=== PATIENT | male | born 1930 | race Caucasian/White ===

== ENCOUNTER 2018-11-17 14:40 | Inpatient (IN) | payer BC ==
[~2018-11-17] VITALS: Ht 162.6 cm; Wt 53.2 kg
[2018-11-17 20:18] VITALS: Ht 162.6 cm; Wt 53.2 kg
[2018-11-17 20:19] VITALS: BP 127/64; PULSE 74; RESP 18
[2018-11-17] MEDS ORDERED: DOCUSATE SODIUM 100 MG CAP PO PRN (21:30)
[2018-11-17] MEDS ORDERED: ONDANSETRON 4 MG INJ IV PRN (21:30)
[2018-11-17] MEDS ORDERED: ACETAMINOPHEN 325 MG TAB PO PRN (21:30)
[2018-11-17] MEDS: SOD CHLORIDE 0.9% 1,000 ML IV SCH (22:01)
[2018-11-17] MEDS: PIPER-TAZO 3.375 GM IV (PMX) 100 ML IVPB SCH (22:01)
[2018-11-18 02:30] VITALS: BP 111/63; PULSE 70; RESP 18
[2018-11-18] MEDS: PIPER-TAZO 3.375 GM IV (PMX) 100 ML IVPB SCH ×3 (05:43→22:00)
[2018-11-18] MEDS: PANTOPRAZOLE (EC) 40 MG TAB PO SCH (05:43)
[2018-11-18 07:20] VITALS: BP 101/60; PULSE 69; RESP 15
[2018-11-18 14:08] VITALS: BP 129/61; PULSE 70; RESP 15
--- NOTE | 2018-11-18 15:13 | HP ---
FREYA MONDRAGON 11/18/18 1513: Date/Time of Note Date/Time of Note DATE: 11/18/18 TIME: 15:13 Assessment/Plan VTE Prophylaxis Risk score ([place] [facility] [place] risk: 3 SCD applied (from Ns): Yes Pharmacological prophylaxis: LMWH Lines/Catheters IV Catheter Type (from [facility]): Saline Lock Assessment/Plan Hospital Course 1 SIRS 2/2 to urinary tract infection 2 hyponatremia 3 history of pancreatitis with ERCP. 2016 4 history of cholecystectomy in 2016 5. weakness secondary to urinary tract infection 6. History of hepatic and renal cyst 7. History of prostate disease however patient PSA is unknown and the ultrasound of the prostate is unavailable 8. Abdomen laparotomy due to unknown disease, 2016 was done in [place] 9. Abdominal ventral hernia 10. Normocytic normochromic anemia Assessment/Plan -GI prophylaxis with Protonix -PSA level and ultrasound of prostate -DVT prophylaxis with Lovenox - IV antibiotics Zosyn -FAll precautions Result Diagram: 11/18/18 0500 11/18/18 0500 Results 24hrs Laboratory Tests Test 11/18/18 04:45 11/18/18 05:00 Urine Color YELLOW Urine Clarity CLEAR Urine pH 7.0 Urine Specific Kegley 1.008 Urine Ketones NEGATIVE Urine Nitrite NEGATIVE Urine Bilirubin NEGATIVE Urine Urobilinogen NEGATIVE Urine Leukocyte Esterase 2+ H Urine Microscopic RBC 3 Urine Microscopic WBC 24 H Urine Bacteria FEW A Urine Hemoglobin NEGATIVE Urine Glucose NEGATIVE Urine Total Protein NEGATIVE White Blood Count 11.4 H Red Blood Count 3.88 L Hemoglobin 12.1 L Hematocrit 34.4 L Mean Corpuscular Volume 88.7 Mean Corpuscular Hemoglobin 31.2 Mean Corpuscular Hemoglobin Concent 35.2 Red Cell Distribution Width 12.2 Platelet Count 255 Mean Platelet Volume 8.0 Immature Granulocytes % 0.400 Neutrophils % 81.5 H Lymphocytes % 7.1 L Monocytes % 8.7 Eosinophils % 2.1 Basophils % 0.2 Nucleated Red Blood Cells % 0.0 Immature Granulocytes # 0.050 H Neutrophils # 9.3 H Lymphocytes # 0.8 Monocytes # 1.0 H Eosinophils # 0.2 Basophils # 0.0 Nucleated Red Blood Cells # 0.0 Sodium Level 126 L Potassium Level 3.8 Chloride Level 94 L Carbon Dioxide Level 24 Anion Gap 8 Blood Urea Nitrogen 7 Creatinine 0.51 L Est Glomerular Filtrat Rate mL/min Glucose Level 96 Calcium Level 9.0 HPI/ROS Admit Date/Time Admit Date/Time Nov 17, 2018 at 19:33 Hx of Present Illness This 88 years old male who who lived in [place] all his life was transferred today from [facility] with a diagnosis of hyponatremia, generalized weakness and urinary tract infection. X-ray showed possible pneumonia as well. The emergency room [facility] started him on antibiotics and IV fluids. Patient also has past medical history of pancreatitis, pneumonia and prostate disease. Patient laboratory w as reviewed CMP sodium 125 potassium 4.9 chloride 92 calcium 8.6 ALT and AST normal BUN 11 creatinine 0.70. CBC is 15.6 RBC 4.35 hemoglobin 13 hematocrit 42 platelets 314 fluids a and B are negative urinalysis show leukocyte esterase positive WBC is more than 50 and many bacteria. Chest x-ray is positive for upper lobe opacities that might represent COPD. Patient was transferred today to [facility] due to insurance purposes. surgical history ERCP 2017, cholecystectomy, laparotomy 2016 ROS weakness ENT: no complaints Respiratory: no complaints Cardiovascular: no complaints Gastrointestinal: no complaints PMH/Family/Social Past Medical History Medications Current Medications Acetaminophen (Tylenol Tab) 650 mg Q4H PRN PO MILD PAIN(1-3)OR ELEVATED TEMP; Start 11/17/18 at 21:30 Ondansetron HCl (Zofran Inj) 4 mg Q6H PRN IV NAUSEA AND/OR VOMITING; Start 11/17/18 at 21:30 Pantoprazole (Protonix Tab) 40 mg DAILY@06 PO Last administered on 11/18/18at 05:43; Admin Dose 40 MG; Start 11/18/18 at 06:00 Docusate Sodium (Colace) 100 mg BID PRN PO CONSTIPATION; Start 11/17/18 at 21:30 Piperacillin Sod/ Tazobactam Sod 100 ml @ 200 mls/hr Q8 IVPB Last administered on 11/18/18at 13:54; Admin Dose 200 MLS/HR; Start 11/17/18 at 22:00 Sodium Chloride 1,000 ml @ 50 mls/hr Q20H IV Last administered on 11/17/18at 22:01; Admin Dose 50 MLS/HR; Start 11/17/18 at 21:30 Coded Allergies: No Known Allergy (Unverified , 11/17/18) Past Surgical History Past Surgical Hx: cholecystectomy (2017) Social History Alcohol Use: none Smoking Status: Never smoker Drug Use: none Exam/Review of Systems Vital Signs Vitals Vital Signs Date Temp Pulse Resp B/P (MAP) Pulse Ox O2 O2 Flow FiO2 Time Delivery Rate 11/18/18 98.0 70 15 129/61 100 Room Air 14:08 (83) Intake and Output 11/17/18 11/17/18 11/18/18 1515:00 23:00 07:00 IntakeIntake Total 300 ml 750 ml OutputOutput Total 150 ml 1000 ml BalanceBalance 150 ml -250 ml Exam Constitutional: alert, oriented Eyes: nl conjunctiva ENMT: nl external ears & nose Neck: supple Respiratory: diminished breath sounds Cardiovascular: regular rate and rhythm Gastrointestinal: soft, surgical scars, other (ventral hernia) SARAN ALFRED MD 11/18/18 1741: Assessment/Plan Assessment/Plan Assessment/Plan RENAL U./A/BLADDER us flomax iv abx see n and examined Hyponatremia > wup Result Diagram: 11/18/18 0500 11/18/18 0500 PMH/Family/Social Past Medical History Coded Allergies: No Known Allergy (Unverified , 11/17/18) FREYA MONDRAGON Nov 18, 2018 15:13 SARAN ALFRED MD Nov 18, 2018 17:41
[2018-11-18] MEDS: SOD CHLORIDE 0.9% 1,000 ML IV SCH (17:30)
[2018-11-18] MEDS: ENOXAPARIN 40 MG/0.4 ML SYG SC SCH (17:41)
[2018-11-18 20:00] VITALS: BP 127/61; PULSE 69; RESP 18
[2018-11-18] MEDS: TAMSULOSIN (SR) 0.4 MG CAP PO SCH (20:25)
[2018-11-19 01:37] VITALS: BP 117/66; PULSE 78; RESP 20
[2018-11-19] MEDS: PANTOPRAZOLE (EC) 40 MG TAB PO SCH (06:34)
[2018-11-19] MEDS: PIPER-TAZO 3.375 GM IV (PMX) 100 ML IVPB SCH ×3 (06:34→21:32)
[2018-11-19 08:12] VITALS: BP 117/67; PULSE 77; RESP 18
[2018-11-19] MEDS: ENOXAPARIN 40 MG/0.4 ML SYG SC SCH (08:28)
--- NOTE | 2018-11-19 09:54 | PN ---
FREYA STYLES 11/19/18 0954: Date/Time of Note Date/Time of Note DATE: 11/19/18 TIME: 09:52 Assessment/Plan VTE Prophylaxis Risk score (from Ns)>0 risk: 3 SCD applied (from Nsg): Yes Pharmacological prophylaxis: LMWH Lines/Catheters IV [facility]ter Type (from [facility]): Peripheral IV Assessment/Plan Hospital Course 1 SIRS 2/2 to urinary tract infection 2 hyponatremia, worse, sodium studies are done 3 history of pancreatitis with ERCP. 2016 4 history of cholecystectomy in 2016 5. weakness secondary to urinary tract infection 6. History of hepatic and renal cyst 7. History of prostate disease however patient PSA is unknown and the ultrasound of the prostate is unavailable 8. Abdomen laparotomy due to unknown disease, 2016 was done in [place] 9. Abdominal ventral hernia 10. Normocytic normochromic anemia Assessment/Plan -GI prophylaxis with Protonix fluid restrictions -PSA level 4.1, slightly elevated, almost normal -ultrasound of prostate normal -DVT prophylaxis with Lovenox - IV antibiotics Zosyn -FAll precautions Result Diagram: 11/19/18 0454 11/19/18 0454 Results 24hrs Laboratory Tests Test 11/18/18 17:15 11/18/18 18:02 11/19/18 04:54 Urine Osmolality 526 Urine Random Sodium 183 H Sodium Level 124 L 123 L White Blood Count 8.1 # Red Blood Count 4.05 L Hemoglobin 12.5 L Hematocrit 35.3 L Mean Corpuscular Volume 87.2 Mean Corpuscular Hemoglobin 30.9 Mean Corpuscular Hemoglobin Concent 35.4 Red Cell Distribution Width 12.2 Platelet Count 267 Mean Platelet Volume 8.2 Immature Granulocytes % 0.500 H Neutrophils % 76.1 Lymphocytes % 8.7 L Monocytes % 10.0 Eosinophils % 4.6 Basophils % 0.1 Nucleated Red Blood Cells % 0.0 Immature Granulocytes # 0.040 H Neutrophils # 6.1 Lymphocytes # 0.7 L Monocytes # 0.8 Eosinophils # 0.4 Basophils # 0.0 Nucleated Red Blood Cells # 0.0 Potassium Level 4.0 Chloride Level 90 L Carbon Dioxide Level 24 Anion Gap 9 Blood Urea Nitrogen 7 Creatinine 0.50 L Est Glomerular Filtrat Rate mL/min Glucose Level 90 Calcium Level 9.2 Prostate Specific Antigen 4.1 H Subjective 24 Hr Interval Summary Constitutional: no complaints, improved Exam/Review of Systems Exam Vitals Vital Signs Date Temp Pulse Resp B/P (MAP) Pulse Ox O2 O2 Flow FiO2 Time Delivery Rate 11/19/18 97.8 77 18 117/67 99 Room Air 08:12 (84) Intake and Output 11/18/18 11/18/18 11/19/18 1515:00 23:00 07:00 IntakeIntake Total 520 ml 990 ml OutputOutput Total 600 ml 350 ml BalanceBalance -80 ml 990 ml -350 ml Constitutional: alert Respiratory: clear to auscultation Cardiovascular: regular rate and rhythm Gastrointestinal: soft Results Result Diagram: 11/19/18 0454 11/19/18 0454 Results 24hrs Laboratory Tests Test 11/18/18 17:15 11/18/18 18:02 11/19/18 04:54 Urine Osmolality 526 Urine Random Sodium 183 H Sodium Level 124 L 123 L White Blood Count 8.1 # Red Blood Count 4.05 L Hemoglobin 12.5 L Hematocrit 35.3 L Mean Corpuscular Volume 87.2 Mean Corpuscular Hemoglobin 30.9 Mean Corpuscular Hemoglobin Concent 35.4 Red Cell Distribution Width 12.2 Platelet Count 267 Mean Platelet Volume 8.2 Immature Granulocytes % 0.500 H Neutrophils % 76.1 Lymphocytes % 8.7 L Monocytes % 10.0 Eosinophils % 4.6 Basophils % 0.1 Nucleated Red Blood Cells % 0.0 Immature Granulocytes # 0.040 H Neutrophils # 6.1 Lymphocytes # 0.7 L Monocytes # 0.8 Eosinophils # 0.4 Basophils # 0.0 Nucleated Red Blood Cells # 0.0 Potassium Level 4.0 Chloride Level 90 L Carbon Dioxide Level 24 Anion Gap 9 Blood Urea Nitrogen 7 Creatinine 0.50 L Est Glomerular Filtrat Rate mL/min Glucose Level 90 Calcium Level 9.2 Prostate Specific Antigen 4.1 H Medications Medication Current Medications Acetaminophen (Tylenol Tab) 650 mg Q4H PRN PO MILD PAIN(1-3)OR ELEVATED TEMP; Start 11/17/18 at 21:30 Ondansetron HCl (Zofran Inj) 4 mg Q6H PRN IV NAUSEA AND/OR VOMITING; Start 11/17/18 at 21:30 Pantoprazole (Protonix Tab) 40 mg DAILY@06 PO Last administered on 11/19/18at 06:34; Admin Dose 40 MG; Start 11/18/18 at 06:00 Docusate Sodium (Colace) 100 mg BID PRN PO CONSTIPATION; Start 11/17/18 at 21:30 Piperacillin Sod/ Tazobactam Sod 100 ml @ 200 mls/hr Q8 IVPB Last administered on 11/19/18at 06:34; Admin Dose 200 MLS/HR; Start 11/17/18 at 22:00 Enoxaparin Sodium (Lovenox) 40 mg DAILY SC Last administered on 11/19/18at 08:28; Admin Dose 40 MG; Start 11/18/18 at 16:00 Tamsulosin HCl (Flomax) 0.4 mg HS PO Last administered on 11/18/18at 20:25; Admin Dose 0.4 MG; Start 11/18/18 at 21:00 SARAN ALFRED MD 11/19/18 1428: Assessment/Plan Assessment/Plan Assessment/Plan URINE STUDIES CONSISTENT WITH [facility] [place] Result Diagram: 11/19/18 0454 11/19/18 0454 FREYA MONDRAGON Nov 19, 2018 09:54 SARAN ALFRED MD Nov 19, 2018 14:28
[2018-11-19] MEDS ORDERED: TOLVAPTAN 15 MG TABLET PO ONE (10:30)
[2018-11-19 15:22] VITALS: BP 105/59; PULSE 69; RESP 18
[2018-11-19 19:22] VITALS: BP 114/56; PULSE 75; RESP 18
[2018-11-19] MEDS: TAMSULOSIN (SR) 0.4 MG CAP PO SCH (20:25)
[2018-11-20] MEDS: PIPER-TAZO 3.375 GM IV (PMX) 100 ML IVPB SCH ×2 (05:53→14:00)
[2018-11-20] MEDS: PANTOPRAZOLE (EC) 40 MG TAB PO SCH (05:53)
[2018-11-20 08:25] VITALS: BP 99/54; PULSE 78; RESP 18
[2018-11-20] MEDS: ENOXAPARIN 40 MG/0.4 ML SYG SC SCH (09:59)
[2018-11-20 13:53] VITALS: BP 111/62; PULSE 76; RESP 19
--- NOTE | 2018-11-20 14:07 | PDOCDIS ---
Discharge Instructions DIAGNOSIS Discharge Diagnosis UTI Hyponatremia CONDITION [id number] Patient Condition: [id number] Fair HOME CARE INSTRUCTIONS: [id number] Diet Instructions: [id number] Modified Fat ACTIVITY: [id number] Activity Restrictions: [id number] No Restrictions Slowly Increase Activity Rest between Activity FOLLOW UP/APPOINTMENTS Follow-up Plan f/u PCP in1 week for BMP ( na check) FLuid restriction 1.2l Return to ER if has abdominal pain/ vommting/fevers/chills SARAN ALFRED MD Nov 20, 2018 14:07
[2018-11-20] MEDS ORDERED: TAMS-14 PO (14:08)
[2018-11-20] MEDS ORDERED: CIPR500T4 PO (14:08)
--- NOTE | 2018-11-21 00:45 | DS ---
DATE OF ADMISSION: 11/17/2018 DATE OF DISCHARGE: 11/20/2018 HISTORY OF PRESENT ILLNESS AND HOSPITAL COURSE: This is an 88-year-old male with a past medical hist ory of pancreatitis, pneumonia, and prostate disease. The patient was admitted to [facility] secondary to some generalized weakness. The patient was found to have UTI. The patient had histor y of pneumonia before; however, chest x-ray shows possibility of pneumonia but patient was not in any short of breath or any cough. On admission date, vital signs were stable. Blood sodium was 125, po tassium 4.9, AST and ALT within normal limit, BUN of 11, and creatinine 0.70. The patient was transf erred to [facility] due to insurance purposes. The patient was to continue with IV Zosyn. The patient was also started on Flomax for BPH. The patient also had a pelvic ultrasound that showed urinary bladder not visualized, peripheral calcification within the prostate, was does to be enlarge d in size; however, evaluation was limited due to calcification. The patient has a PSA level, which was 4.1. 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 Urine osmolality was 526, urine sodium 183, and pH was normal. He was g iven low dose Samsca. After that, the urine sodium normalized to 133. The patient was feeling much better and ambulating with the help of the physical therapy. Urine culture studies have been negativ e. Currently, the patient is feeling much better and stable to be discharged home. DISCHARGE DIAGNOSES: 1. Urinary tract infection. 2. 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 3. Possible benign prostatic hypertrophy. 4. Sores secondary to urinary tract infection. 5. History of pancreatitis in 2017. 6. History of cholecystectomy. 7. History of hepatic and renal cysts. 8. History of abdominal laparotomy. 9. History of ventral hernia. DISCHARGE CONDITION: Stable. DISCHARGE DIET: Regular diet; however, the patient should be on fluid restriction. The patient will follow up with PCP in about 1 week for her BMP check. Family was instructed to bring the patient to the hospital again if patient has some weakness, nausea, vomiting, fevers, or chills. Dictated By: SARAN ALMANZA/SARTHAK Conf#: [id number] [facility]#: [id number]
== END 2018-11-20 14:50 | disposition home or self-care (01) | DRG 690 ==
LOC: MS1 19:33
PROVIDERS: ADMIT Internal Medicine; ATTEND Internal Medicine
DX: N39.0 Urinary tract infection, site not specified (principal); E22.2 Syndrome of inappropriate secretion of antidiuretic hormone; D64.9 Anemia, unspecified; K43.9 Ventral hernia without obstruction or gangrene; N40.0 Benign prostatic hyperplasia without lower urinary tract symptoms; R53.1 Weakness; Z90.49 Acquired absence of other specified parts of digestive tract
CPT/HCPCS: 76856; 80048; 81001; 83935; 84153; 84154; 84295; 84300; 85025; 87086; 97116; 97161; 97530; J1650; J2543; J7030

== ENCOUNTER 2019-01-03 15:36 | Inpatient (IN) | payer BC ==
[~2019-01-03] VITALS: Ht 162.6 cm; Wt 51.2 kg
[~2019-01-03 15:36] MED LIST: CIPR500T4 PO; TAMS-14 PO
[2019-01-03] MEDS ORDERED: SOD CHLORIDE 0.9% 500 ML IV STA (16:36)
--- NOTE | 2019-01-03 16:45 | ERD ---
ER Documentation Chief Complaint Chief Complaint bib ambulnz 520 from [facility], pt is being admitted for pneumonia / sob HPI 88-year-old man transferred here from [facility] emergency department after being diagnosed with pneumonia. Patient was treated in the ER with IV fluids ceftriaxone and azithromycin IV. Patient had complaints of coughing and intermittent wheezing x3 weeks. Patient has no complaints of chest pain or shortness of breath in our emergency department, denies headache or blurry vision, no vomiting or diarrhea. HPI supplemented by speaking to his family member who was at the bedside, reviewing [facility] ED records, and speaking to accepting physician ROS All systems reviewed and are negative except as per history of present illness. Medications Home Meds Active Scripts Ciprofloxacin Hcl* (Ciprofloxacin Hcl*) 500 Mg Tablet, 500 MG PO BID for 7 Days, #14 TAB Prov:SARAN ALFRED MD 11/20/18 Tamsulosin Hcl* (Flomax*) 0.4 Mg Cap.er.24h, 0.4 MG PO HS for 30 Days, CAP Prov:SARAN ALFRED MD 11/20/18 Allergies Allergies: Coded Allergies: No Known Allergy (Unverified , 11/17/18) PMhx/Soc Pancreatitis, BPH History of Surgery: Yes (TURP (2008); Abdominal surgery( N/A wich one)) Anesthesia Reaction: No Hx Neurological Disorder: No Hx Respiratory Disorders: No Hx Cardiac Disorders: No Hx Psychiatric Problems: No Hx Miscellaneous Medical Probl: Yes ([employer] SL[employer], GENERALIZED WEAKNESS .) Hx Alcohol Use: No Hx Substance Use: No Hx Tobacco Use: No Smoking Status: Never smoker Physical Exam Vitals Vital Signs Date Temp Pulse Resp B/P (MAP) Pulse Ox O2 O2 Flow FiO2 Time Delivery Rate 01/03/19 Nasal 2.0 15:50 Cannula 01/03/19 97.5 70 19 118/74 100 15:50 (89) Physical Exam GENERAL: Well-developed, well-nourished, well-hydrated, in no apparent distress, looks nontoxic in appearance HEENT: Moist mucous membranes, pink conjunctiva, no cervical spine tenderness or step-off deformities, no goiter, no jaundice or icterus, extraocular movements intact without pain. No submandibular induration, and no pharyngeal erythema NEURO: Alert and oriented 3, cranial nerves II through XII intact bilaterally, pupils equal round reactive to light, no focal deficits or facial asymmetry, sensation intact distally Strength 5/5 in upper and lower extremities bilat erally CARDIAC: Regular rate and rhythm, no murmurs rubs or gallops LUNGS: Clear bilaterally no wheezing crackles or stridor ABDOMEN: Soft nontender, no guarding, no rigidity, no rebound, no psoas sign no obturator sign. Normoactive bowel sounds SKIN: Warm and dry to touch, no abrasions, contusions, or hematomas, no lacerations, no ecchymosis, no target lesions, and without ulcers EXTREMITIES: No clubbing cyanosis or edema, calves are bilaterally symmetrical, no Homans sign, no popliteal cord sign. Distal pulses equal and bilateral PSYCH: Normal affect without agitation or irritability Results 24 hrs Current Medications Medications Dose Sig/Christin Start Time Status Last (Trade) Ordered Route PRN Stop Time Admin Dose Reason Admin Sodium 500 ml @ Q1H STAT 01/03/19 Chloride 500 mls/hr IV 16:36 01/03/19 17:35 Procedures/MDM IV line was established patient was placed on cardiac exercise physiologist rhythm strip revealed a sinus rhythm at about 80 bpm with upright P and T waves. Patient was afebrile Patient's recent lab work reveals hyponatremia at 120 with a normal blood sugar, his CBC was within normal limits. I ordered repeat blood work and administered 500 cc normal saline IV. Patient's recent x-ray revealed diffuse reticulonodular opacities, further imaging may be indicated although I will defer this to admitting physician. Patient accepted to telemetry setting. Departure Diagnosis: Primary Impression: Pneumonia Pneumonia type: due to unspecified organism Laterality: bilateral Lung location: lower lobe of lung Qualified Codes: J18.1 - Lobar pneumonia, unspecified organism Additional Impressions: Acute hyponatremia Reticulonodular infiltrate present on imaging of chest Condition: KATIE Hastings MD Jan 03, 2019 16:45
--- NOTE | 2019-01-03 17:30 | QN ---
Documentation Comment pt seen and exmained h and p dictated SARAN ALFRED MD Jan 03, 2019 17:29
[2019-01-03] MEDS ORDERED: CEFTRIAXONE 1 GM/50 ML (PMX) 50 ML IVPB SCH (18:00)
[2019-01-03] MEDS ORDERED: NACL 0.9% 3 ML SYG IV SCH (18:00)
[2019-01-03] MEDS ORDERED: ACETAMINOPHEN 325 MG TAB PO PRN (18:00)
[2019-01-03] MEDS ORDERED: ONDANSETRON 4 MG INJ IV PRN (18:00)
[2019-01-03] MEDS ORDERED: DOCUSATE SODIUM 100 MG CAP PO PRN (18:00)
[2019-01-03] MEDS: ENOXAPARIN 40 MG/0.4 ML SYG SC SCH (18:38)
[2019-01-03] MEDS: AZITHROMYCIN 500MG/NS (PMX) 250 ML IV SCH (19:36)
[2019-01-03] MEDS ORDERED: AZITHROMYCIN 250 MG in SOD CHLORIDE 0.9% 250 ML IVPB SCH (20:00)
[2019-01-03] MEDS: ALBUTEROL/IPRATROPIUM (NEB) 3 ML AMP HHN SCH (22:09)
--- NOTE | 2019-01-03 22:10 | HP ---
DATE OF ADMISSION: 01/03/2019 REASON FOR ADMISSION: Transferred from [facility] secondary to weakness, fevers, cough and pneumonia. HISTORY OF PRESENT ILLNESS: This is an 88-year-old male with the past medical history of some pancreatic surgery in [place] many years ago, history of cholecystectomy, history of pancreatic and renal cysts who was recently admitted in 10/2018 secondary to hyponatremia, urinary tract infection and possible pneumonia. At that time, patient was treated with antibiotics and was discharged home in stable condition. The patient was also treated with Samsca and the sodium had improved on discharge. According to the family, the patient had been doing fine until two weeks ago, he was starting having worsening cough and wheezing. The patient was also getting progressively short of breath which made him come to the Emergency Department at [facility]. The patient was not having any fevers and chills. According to the family, patient has lost 14 pounds. When patient came to the Emergency Department, patient denied any night sweats. The patient's temperature was 98.5, pulse 94, respirations 20, blood pressure 135/70. The patient had labs that showed a BNP of 261, procalcitonin less than 0.10, sodium 120, BUN of 9, creatinine 0.55. LFTs within normal limit except alkaline phosphatase was 149. Albumin 3.6, lactate was 2, troponin less than 0.01, had white count of 5.7 and hemoglobin 12.9. The patient had a chest x-ray that showed diffuse reticular nodular opacities likely increased in both lungs from the prior radiograph. This can be further assessed with CT. The patient was treated with IV antibiotics with Rocephin, azithromycin and fluids, and then was transferred due to insurance reasons. According to the daughter, the patient has been having some cough and wheezing for past two weeks. PAST MEDICAL HISTORY: 1. History of hyponatremia. 2. History of urinary tract infection. 3. Possible benign prostatic hypertrophy. 4. History of pancreatitis in 2017. 5. History of cholecystectomy. 6. History of hepatic and renal cyst. 7. History of abdominal laparotomy in [place]. 8. History of ventral hernia. ALLERGIES: NONE. PAST SURGICAL HISTORY: Pancreatic surgery, questionable ERCP. SOCIAL HISTORY: No history of smoking, alcohol or drug use. He has a strong family history of support at home. MEDICATIONS TAKING AT HOME: None. REVIEW OF SYSTEMS: The patient complained of cough, shortness of breath and wheezing for the past 2 to 3 weeks. Some weight loss. Denies any nausea, vomiting, diarrhea. Denied any headache or any blurry vision. He does not have more than usual intake of water. Denies any nocturia, dysuria, any burning sensation. PHYSICAL EXAMINATION: VITAL SIGNS: Currently, blood pressure 118/74, temperature 97.5, pulse 70, respirations 19. Gen: Awake,alert and oriented neck: supple Lungs: diffuse scattered rhonchi cvs: Regular rate and rthym Abdomen:soft, non tender Ext : no edema neuro non focal LABORATORY DATA: Labs from the [facility]: Sodium was 120. White count was within normal limit. BUN and creatinine within normal limit. DIAGNOSTIC DATA: Chest x-ray shows diffuse reticular nodular opacities. EKG was within normal limit. ASSESSMENT AND PLAN: This is an 88-year-old male with: 1. Recurrent episode of pneumonia. Chest x-ray there has showed reticular nodular opacities. We will ruled out some atypical pneumonia/rule out questionable malignancy. 2. Shortness of breath, cough, is likely secondary to bronchospasm. 3. History of some pancreatic surgery, status post ERCP. 4. History of hepatic and renal cyst. 5. Acute hyponatremia, questionable ____. 6. History of ventral hernia. PLAN: At this period of time, the patient will be admitted to telemetry. The patient will be on broad spectrum antibiotics, nebs. We will also get a CT of the chest. We will call pulmonary consultation. So for sodium, we will check a repeat sodium again and possibly patient will need Samsca. We will check urine ____. Rest of the treatment will depend on the patient's hospitalization course. Dictated By: SARAN ALMANZA/SARTHAK Conf#: [id number] DID#: [id number] MTDD
[2019-01-04] VITALS (13 sets, daily range): BP systolic 104–135; BP diastolic 53–74; PULSE 79–107; RESP 18–20; Ht 162.6 cm; Wt 51.2 kg
[2019-01-04] MEDS: ALBUTEROL/IPRATROPIUM (NEB) 3 ML AMP HHN SCH ×5 (02:13→20:48)
[2019-01-04] MEDS: PANTOPRAZOLE (EC) 40 MG TAB PO SCH (05:34)
[2019-01-04] MEDS: ENOXAPARIN 40 MG/0.4 ML SYG SC SCH (08:56)
--- NOTE | 2019-01-04 11:05 | CONS ---
Assessment/Plan Assessment/Plan Assessment/Plan (Daily) Assessment and recommendations; 1. Patient admitted with bilateral community-acquired pneumonia with multilobar involvement. Clinically improving. 2. History of BPH. 3. Prior history of laparotomy with cholecystectomy. 4. History of pancreatitis in the past as well. Discontinue Rocephin, start cefepime 1 g every 12 hours. Continue other supportive care. Continue Zithromax. Obtain follow-up chest x-ray in 48 hours. Consultation Date/Type/Reason Admit Date/Time Jan 03, 2019 at 16:08 Date of Consultation: Jan 04, 2019 Type of Consult Pulmonary Patient is a pleasant 88-year-old gentleman who has been admitted because of cough for the last 2 weeks shortness of breath. Upon evaluation a CT scan of chest was done which showed bilateral pneumonia. Patient is feeling better since admission. Denies any fever, chills, wheezing, complains of cough without any significant sputum production. Also denies any nausea vomiting. By the time I saw the patient, he appeared comfortable. Past medical history; 1. History of BPH. 2. No history of any cardiopulmonary illnesses. 3. History of pink otitis in the past. 4. History of cholecystectomy. 5. History of laparotomy. Medications; reviewed. Allergies; none. Social history; patient never smoked, no stable alcohol or drug abuse. Family history; noncontributory. 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 Review of systems; denies any headache, seizures, dysphagia, chest pain, angina, complains of cough and chest congestion. Complains of very scant sputum production. Denies any hemoptysis. Denies any fever or chills. Any abdominal pain, nausea vomiting. Complains of occasional difficulty with urination. Denies any GI symptoms. Any weight loss. Has good appetite. General exam; elderly male, awake alert, currently in no distress. Date/Time of Note DATE: 01/04/19 TIME: 11:02 Past Medical History Home Meds Active Scripts Tamsulosin Hcl* (Flomax*) 0.4 Mg Cap.er.24h, 0.4 MG PO HS for 30 Days, CAP Prov:SARAN ALFRED MD 11/20/18 Discontinued Scripts Ciprofloxacin Hcl* (Ciprofloxacin Hcl*) 500 Mg Tablet, 500 MG PO BID for 7 Days, #14 TAB Prov:SARAN ALFRED MD 11/20/18 Medications Current Medications IV Flush (NS 3 ml) 3 ml PER PROTOCOL IV ; Start 01/03/19 at 18:00 Ondansetron HCl (Zofran Inj) 4 mg Q6H PRN IV NAUSEA/VOMITING; Start 01/03/19 at 18:00 Acetaminophen (Tylenol Tab) 650 mg Q6H PRN PO .PAIN 1-3 OR TEMP; Start 01/03/19 at 18:00 Docusate Sodium (Colace) 100 mg Q12H PRN PO .CONSTIPATION; Start 01/03/19 at 18:00 Pantoprazole (Protonix Tab) 40 mg DAILY@06 PO Last administered on 01/04/19at 05:34; Admin Dose 40 MG; Start 01/04/19 at 06:00 Enoxaparin Sodium (Lovenox) 40 mg DAILY SC Last administered on 01/04/19at 08:56; Admin Dose 40 MG; Start 01/03/19 at 18:00 Ceftriaxone Sodium 50 ml @ 100 mls/hr Q24H IVPB Last administered on 01/03/19at 18:38; Admin Dose 100 MLS/HR; Start 01/03/19 at 18:00 Albuterol/ Ipratropium (Duoneb) 3 ml Q4H RESP THERAPY HHN Last administered on 01/04/19at 05:32; Admin Dose 3 ML; Start 01/03/19 at 21:00 Azithromycin 250 ml @ 250 mls/hr Q24H IV Last administered on 01/03/19at 19:36; Admin Dose 250 MLS/HR; Start 01/03/19 at 18:30 Allergies: Coded Allergies: No Known Allergy (Unverified , 01/03/19) Past Surgical History Past Surgical Hx: cholecystectomy Social History Smoking Status: Never smoker Exam/Review of Systems Exam Vitals Vital Signs Date Temp Pulse Resp B/P (MAP) Pulse Ox O2 O2 Flow FiO2 Time Delivery Rate 01/04/19 82 08:00 01/04/19 98.6 18 125/59 99 Nasal 07:13 (81) Cannula 01/04/19 3.0 05:32 Intake and Output 01/03/19 01/03/19 01/04/19 1515:00 23:00 07:00 IntakeIntake Total 50 ml 200 ml OutputOutput Total 450 ml BalanceBalance 50 ml -250 ml Exam H EENT exam; supple neck, no JVD. No lymphadenopathy. Midline trachea. No thyromegaly. Patient does have carious teeth. Pupils are small bilaterally. No neck masses. Chest exam; diminished breath sounds bilaterally. Scattered crackles. S1-S2 audible, no murmurs. Regular rhythm. Abdomen exam; soft, nontender. No organomegaly. Bowel sounds audible. Extremity exam; no peripheral edema. Patient does have patchy ecchymosis. [employer] exam; no focal deficit. Results Result Diagram: 01/03/19 1707 01/04/19 0701 Results 24hrs Laboratory Tests Test 01/03/19 17:07 01/04/19 04:20 01/04/19 07:01 White Blood Count 5.8 Red Blood Count 4.17 L Hemoglobin 12.6 L Hematocrit 36.8 L Mean Corpuscular Volume 88.2 Mean Corpuscular Hemoglobin 30.2 Mean Corpuscular Hemoglobin Concent 34.2 Red Cell Distribution Width 12.8 Platelet Count 293 Mean Platelet Volume 7.7 Immature Granulocytes % 0.500 H Neutrophils % 69.6 Lymphocytes % 12.0 L Monocytes % 15.1 H Eosinophils % 2.6 Basophils % 0.2 Nucleated Red Blood Cells % 0.0 Immature Granulocytes # 0.030 Neutrophils # 4.1 Lymphocytes # 0.7 L Monocytes # 0.9 Eosinophils # 0.2 Basophils # 0.0 Nucleated Red Blood Cells # 0.0 Sodium Level 125 L 124 L Potassium Level 4.8 4.3 Chloride Level 89 L 91 L Carbon Dioxide Level 28 24 Anion Gap 8 9 Blood Urea Nitrogen 8 8 Creatinine 0.56 L 0.49 L Est Glomerular Filtrat Rate mL/min Glucose Level 101 93 Calcium Level 8.9 8.7 Total Bilirubin 0.8 Direct Bilirubin 0.00 Indirect Bilirubin 0.8 Aspartate Amino Transf (AST/SGOT) 19 Alanine Aminotransferase (ALT/SGPT) 19 Alkaline Phosphatase 128 H Troponin I < 0.012 Total Protein 7.2 Albumin 3.7 Globulin 3.50 H Albumin/Globulin Ratio 1.05 Lipase 53 Urine Random Sodium 180 H Phosphorus Level 3.6 Magnesium Level 1.8 Medications Medication Current Medications IV Flush (NS 3 ml) 3 ml PER PROTOCOL IV ; Start 01/03/19 at 18:00 Ondansetron HCl (Zofran Inj) 4 mg Q6H PRN IV NAUSEA/VOMITING; Start 01/03/19 at 18:00 Acetaminophen (Tylenol Tab) 650 mg Q6H PRN PO .PAIN 1-3 OR TEMP; Start 01/03/19 at 18:00 Docusate Sodium (Colace) 100 mg Q12H PRN PO .CONSTIPATION; Start 01/03/19 at 18:00 Pantoprazole (Protonix Tab) 40 mg DAILY@06 PO Last administered on 01/04/19at 05:34; Admin Dose 40 MG; Start 01/04/19 at 06:00 Enoxaparin Sodium (Lovenox) 40 mg DAILY SC Last administered on 01/04/19at 08:56; Admin Dose 40 MG; Start 01/03/19 at 18:00 Ceftriaxone Sodium 50 ml @ 100 mls/hr Q24H IVPB Last administered on 01/03/19at 18:38; Admin Dose 100 MLS/HR; Start 01/03/19 at 18:00 Albuterol/ Ipratropium (Duoneb) 3 ml Q4H RESP THERAPY HHN Last administered on 01/04/19at 05:32; Admin Dose 3 ML; Start 01/03/19 at 21:00 Azithromycin 250 ml @ 250 mls/hr Q24H IV Last administered on 01/03/19 19:36; Admin Dose 250 MLS/HR; Start 01/03/19 at 18:30 ANISH ATKINSON Jan 04, 2019 11:05
[2019-01-04] MEDS ORDERED: TOLVAPTAN 15 MG TABLET PO ONE (14:00)
[2019-01-04] MEDS: CEFEPIME 1GM/50 ML (PMX) 50 ML IVPB SCH ×2 (14:13→21:47)
--- NOTE | 2019-01-04 15:34 | PN ---
Date/Time of Note Date/Time of Note DATE: 01/04/19 TIME: 15:30 Assessment/Plan VTE Prophylaxis Risk score (from Ns)>0 risk: 11 [place] [facility] [place] contraindicated: low risk/ambulating Pharmacological prophylaxis: NA/contraindicated Pharm contraindication: low risk/ambulating Lines/Catheters IV Catheter Type (from [facility]): [place] Urinary Cath still in place: No Assessment/Plan Assessment/Plan 88-year-old male with: 1. Recurrent episode of pneumonia. Chest x-ray there has showed reticular nodular opacities. CT of the chest with the bronchiolitis/bronchopneumonia 2. Shortness of breath, cough, is likely secondary to bronchospasm. 3. History of some pancreatic surgery, status post ERCP. 4. History of hepatic and renal cyst. 5. 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 History of ventral hernia. plan -Continue with cefepime/azithromycin -robitussin as needed cough -We will give Samsca today and recheck sodium -GI/DVT prophylaxis -spoke to the family at bedside Result Diagram: 01/03/19 1707 01/04/19 1214 Results 24hrs Laboratory Tests Test 01/03/19 17:07 01/04/19 04:20 01/04/19 07:01 01/04/19 12:14 White Blood Count 5.8 Red Blood Count 4.17 L Hemoglobin 12.6 L Hematocrit 36.8 L Mean Corpuscular Volume 88.2 Mean Corpuscular 30.2 Hemoglobin Mean Corpuscular 34.2 Hemoglobin Concent Red Cell Distribution 12.8 Width Platelet Count 293 Mean Platelet Volume 7.7 Immature Granulocytes % 0.500 H Neutrophils % 69.6 Lymphocytes % 12.0 L Monocytes % 15.1 H Eosinophils % 2.6 Basophils % 0.2 Nucleated Red Blood 0.0 Cells % Immature Granulocytes # 0.030 Neutrophils # 4.1 Lymphocytes # 0.7 L Monocytes # 0.9 Eosinophils # 0.2 Basophils # 0.0 Nucleated Red Blood 0.0 Cells # Sodium Level 125 L 124 L 123 L Potassium Level 4.8 4.3 Chloride Level 89 L 91 L Carbon Dioxide Level 28 24 Anion Gap 8 9 Blood Urea Nitrogen 8 8 Creatinine 0.56 L 0.49 L Est Glomerular Filtrat Rate mL/min Glucose Level 101 93 Calcium Level 8.9 8.7 Total Bilirubin 0.8 Direct Bilirubin 0.00 Indirect Bilirubin 0.8 Aspartate Amino 19 20 Transf (AST/SGOT) Alanine 19 14 Aminotransferase (ALT/SG PT) Alkaline Phosphatase 128 H Troponin I < 0.012 Total Protein 7.2 Albumin 3.7 Globulin 3.50 H Albumin/Globulin Ratio 1.05 Lipase 53 Urine Osmolality 468 Urine Random Sodium 180 H Phosphorus Level 3.6 Magnesium Level 1.8 Subjective 24 Hr Interval Summary Free Text/Dictation Per family patient has less coughing today. Na levels were 12 5 in the morning Exam/Review of Systems Exam Vitals Vital Signs Date Temp Pulse Resp B/P (MAP) Pulse Ox O2 O2 Flow FiO2 Time Delivery Rate 01/04/19 82 18 96 Nasal 2.0 13:45 Cannula 01/04/19 98.9 112/58 11:39 (76) Intake and Output 01/03/19 01/03/19 01/04/19 1515:00 23:00 07:00 IntakeIntake Total 50 ml 200 ml OutputOutput Total 450 ml BalanceBalance 50 ml -250 ml Exam H EENT exam; supple neck, no JVD. No lymphadenopathy. Chest exam; diminished breath sounds bilaterally. Scattered crackles. S1-S2 audible, no murmurs. Regular rhythm. Abdomen exam; soft, nontender. No organomegaly. Bowel sounds audible. Extremity exam; no peripheral edema. Patient does have patchy ecchymosis. [employer] exam; no focal deficit. Results Results 24hrs Laboratory Tests Test 01/03/19 17:07 01/04/19 04:20 01/04/19 07:01 01/04/19 12:14 White Blood Count 5.8 Red Blood Count 4.17 L Hemoglobin 12.6 L Hematocrit 36.8 L Mean Corpuscular Volume 88.2 Mean Corpuscular 30.2 Hemoglobin Mean Corpuscular 34.2 Hemoglobin Concent Red Cell Distribution 12.8 Width Platelet Count 293 Mean Platelet Volume 7.7 Immature Granulocytes % 0.500 H Neutrophils % 69.6 Lymphocytes % 12.0 L Monocytes % 15.1 H Eosinophils % 2.6 Basophils % 0.2 Nucleated Red Blood 0.0 Cells % Immature Granulocytes # 0.030 Neutrophils # 4.1 Lymphocytes # 0.7 L Monocytes # 0.9 Eosinophils # 0.2 Basophils # 0.0 Nucleated Red Blood 0.0 Cells # Sodium Level 125 L 124 L 123 L Potassium Level 4.8 4.3 Chloride Level 89 L 91 L Carbon Dioxide Level 28 24 Anion Gap 8 9 Blood Urea Nitrogen 8 8 Creatinine 0.56 L 0.49 L Est Glomerular Filtrat Rate mL/min Glucose Level 101 93 Calcium Level 8.9 8.7 Total Bilirubin 0.8 Direct Bilirubin 0.00 Indirect Bilirubin 0.8 Aspartate Amino 19 20 Transf (AST/SGOT) Alanine 19 14 Aminotransferase (ALT/SG PT) Alkaline Phosphatase 128 H Troponin I < 0.012 Total Protein 7.2 Albumin 3.7 Globulin 3.50 H Albumin/Globulin Ratio 1.05 Lipase 53 Urine Osmolality 468 Urine Random Sodium 180 H Phosphorus Level 3.6 Magnesium Level 1.8 Medications Medication Current Medications IV Flush (NS 3 ml) 3 ml PER PROTOCOL IV ; Start 01/03/19 at 18:00 Ondansetron HCl (Zofran Inj) 4 mg Q6H PRN IV NAUSEA/VOMITING; Start 01/03/19 at 18:00 Acetaminophen (Tylenol Tab) 650 mg Q6H PRN PO .PAIN 1-3 OR TEMP; Start 01/03/19 at 18:00 Docusate Sodium (Colace) 100 mg Q12H PRN PO .CONSTIPATION; Start 01/03/19 at 18:00 Pantoprazole (Protonix Tab) 40 mg DAILY@06 PO Last administered on 01/04/19at 05:34; Admin Dose 40 MG; Start 01/04/19 at 06:00 Enoxaparin Sodium (Lovenox) 40 mg DAILY SC Last administered on 01/04/19at 08:56; Admin Dose 40 MG; Start 01/03/19 at 18:00 Albuterol/ Ipratropium (Duoneb) 3 ml Q4H RESP THERAPY HHN Last administered on 01/04/19at 13:45; Admin Dose 3 ML; Start 01/03/19 at 21:00 Azithromycin 250 ml @ 250 mls/hr Q24H IV Last administered on 01/03/19at 19:36; Admin Dose 250 MLS/HR; Start 01/03/19 at 18:30 Cefepime HCl 50 ml @ 100 mls/hr Q12 IVPB Last administered on 01/04/19at 14:13; Admin Dose 100 MLS/HR; Start 01/04/19 at 11:00 SARAN ALFRED MD Jan 04, 2019 15:34
[2019-01-04] MEDS: GUAIFENESIN/DM 5ML CUP PO PRN ×2 (16:24→20:53)
[2019-01-04] MEDS: AZITHROMYCIN 500MG/NS (PMX) 250 ML IV SCH (18:15)
[2019-01-05] VITALS (13 sets, daily range): BP systolic 96–115; BP diastolic 55–59; PULSE 66–91; RESP 16–20
[2019-01-05] MEDS: ALBUTEROL/IPRATROPIUM (NEB) 3 ML AMP HHN SCH ×6 (01:01→20:40)
[2019-01-05] MEDS: PANTOPRAZOLE (EC) 40 MG TAB PO SCH (06:07)
[2019-01-05] MEDS: CEFEPIME 1GM/50 ML (PMX) 50 ML IVPB SCH ×2 (08:46→21:08)
[2019-01-05] MEDS: ENOXAPARIN 40 MG/0.4 ML SYG SC SCH (08:55)
[2019-01-05] MEDS: GUAIFENESIN/DM 5ML CUP PO PRN ×2 (09:40→17:32)
--- NOTE | 2019-01-05 11:10 | PN ---
Date/Time of Note Date/Time of Note DATE: 01/05/19 TIME: 11:06 Assessment/Plan VTE Prophylaxis Risk score (from Ns)>0 risk: 6 SCD applied (from [facility] [place] No SCD contraindicated: other Pharmacological prophylaxis: LMWH Lines/Catheters IV Catheter Type (from [facility]): Peripheral IV Urinary Cath still in place: No Assessment/Plan Hospital Course 1. Recurrent episode of pneumonia. Chest x-ray there has showed reticular nodular opacities. CT of the chest with the bronchiolitis/bronchopneumonia 2. Shortness of breath, cough, is likely secondary to bronchospasm. 3. History of some pancreatic surgery, status post ERCP. 4. History of hepatic and renal cyst. 5. 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 History of ventral hernia. 7. Normocytic normochromic anemia 8. Moderate malnourishment Assessment/Plan -Continue with cefepime/azithromycin pt lost 2 kg d for last 2 month -might need speech therapy -Robitussin as needed cough -We will give Samsca today and recheck sodium -GI proph. Protonix -DVT prophylaxis Lovenox -spoke to the family at bedside Result Diagram: 01/05/19 0754 01/05/19 0754 Results 24hrs Laboratory Tests Test 01/04/19 12:14 01/04/19 20:42 01/05/19 07:54 Sodium Level 123 L 124 L 132 L Aspartate Amino Transf (AST/SGOT) 20 Alanine Aminotransferase (ALT/SGPT) 14 White Blood Count 6.0 Red Blood Count 4.40 L Hemoglobin 13.0 L Hematocrit 38.4 L Mean Corpuscular Volume 87.3 Mean Corpuscular Hemoglobin 29.5 Mean Corpuscular Hemoglobin Concent 33.9 Red Cell Distribution Width 13.2 Platelet Count 344 Mean Platelet Volume 7.9 Immature Granulocytes % 0.500 H Neutrophils % 73.6 Lymphocytes % 11.3 L Monocytes % 12.9 H Eosinophils % 1.5 Basophils % 0.2 Nucleated Red Blood Cells % 0.0 Immature Granulocytes # 0.030 Neutrophils # 4.5 Lymphocytes # 0.7 L Monocytes # 0.8 Eosinophils # 0.1 Basophils # 0.0 Nucleated Red Blood Cells # 0.0 Potassium Level 4.0 Chloride Level 96 L Carbon Dioxide Level 26 Anion Gap 10 Blood Urea Nitrogen 9 Creatinine 0.59 L Est Glomerular Filtrat Rate mL/min Glucose Level 110 Calcium Level 9.1 Subjective 24 Hr Interval Summary Respiratory: shortness of breath Exam/Review of Systems Exam Vitals Vital Signs Date Temp Pulse Resp B/P (MAP) Pulse Ox O2 O2 Flow FiO2 Time Delivery Rate 01/05/19 2.0 10:02 01/05/19 78 18 96 Nasal 10:02 Cannula 01/05/19 98.0 111/59 07:40 (76) Intake and Output 01/04/19 01/04/19 01/05/19 1515:00 23:00 07:00 IntakeIntake Total 1150 ml 220 ml OutputOutput Total 900 ml 300 ml BalanceBalance 250 ml -80 ml Constitutional: alert, oriented Psych: no complaints Respiratory: diminished breath sounds, other (rhonchi) Cardiovascular: regular rate and rhythm Gastrointestinal: soft Lymph: enlarged (mandibular lymph, nodes) Results Results 24hrs Laboratory Tests Test 01/04/19 12:14 01/04/19 20:42 01/05/19 07:54 Sodium Level 123 L 124 L 132 L Aspartate Amino Transf (AST/SGOT) 20 Alanine Aminotransferase (ALT/SGPT) 14 White Blood Count 6.0 Red Blood Count 4.40 L Hemoglobin 13.0 L Hematocrit 38.4 L Mean Corpuscular Volume 87.3 Mean Corpuscular Hemoglobin 29.5 Mean Corpuscular Hemoglobin Concent 33.9 Red Cell Distribution Width 13.2 Platelet Count 344 Mean Platelet Volume 7.9 Immature Granulocytes % 0.500 H Neutrophils % 73.6 Lymphocytes % 11.3 L Monocytes % 12.9 H Eosinophils % 1.5 Basophils % 0.2 Nucleated Red Blood Cells % 0.0 Immature Granulocytes # 0.030 Neutrophils # 4.5 Lymphocytes # 0.7 L Monocytes # 0.8 Eosinophils # 0.1 Basophils # 0.0 Nucleated Red Blood Cells # 0.0 Potassium Level 4.0 Chloride Level 96 L Carbon Dioxide Level 26 Anion Gap 10 Blood Urea Nitrogen 9 Creatinine 0.59 L Est Glomerular Filtrat Rate mL/min Glucose Level 110 Calcium Level 9.1 Medications Medication Current Medications IV Flush (NS 3 ml) 3 ml PER PROTOCOL IV ; Start 01/03/19 at 18:00 Ondansetron HCl (Zofran Inj) 4 mg Q6H PRN IV NAUSEA/VOMITING; Start 01/03/19 at 18:00 Acetaminophen (Tylenol Tab) 650 mg Q6H PRN PO .PAIN 1-3 OR TEMP; Start 01/03/19 at 18:00 Docusate Sodium (Colace) 100 mg Q12H PRN PO .CONSTIPATION; Start 01/03/19 at 18:00 Pantoprazole (Protonix Tab) 40 mg DAILY@06 PO Last administered on 01/05/19 06:07; Admin Dose 40 MG; Start 01/04/19 at 06:00 Enoxaparin Sodium (Lovenox) 40 mg DAILY SC Last administered on 01/05/19 08:55; Admin Dose 40 MG; Start 01/03/19 at 18:00 Albuterol/ Ipratropium (Duoneb) 3 ml Q4H RESP THERAPY HHN Last administered on 01/05/19 09:00; Admin Dose 3 ML; Start 01/03/19 at 21:00 Azithromycin 250 ml @ 250 mls/hr Q24H IV Last administered on 01/04/19 18:15; Admin Dose 250 MLS/HR; Start 01/03/19 at 18:30 Cefepime HCl 50 ml @ 100 mls/hr Q12 IVPB Last administered on 01/05/19 08:46; Admin Dose 100 MLS/HR; Start 01/04/19 at 11:00 Guaifenesin/ Dextromethorphan (Robitussin Dm Liquid Cup) 10 ml Q4H PRN PO COUGH Last administered on 01/05/19 09:40; Admin Dose 10 ML; Start 01/04/19 at 15:30 FREYA MONDRAGON Jan 05, 2019 11:10
--- NOTE | 2019-01-05 13:57 | CONS ---
Consult Date/Type/Reason Admit Date/Time Jan 03, 2019 at 16:08 Initial Consult Date 01/04/19 Type of Consult Pulmonary Date/Time of Note DATE: 01/05/19 TIME: 13:55 Subjective Patient feels little better today. Less shortness of breath. Objective Vital Signs Date Temp Pulse Resp B/P (MAP) Pulse Ox O2 O2 Flow FiO2 Time Delivery Rate 01/05/19 97 2.0 13:44 01/05/19 86 20 Nasal 13:43 Cannula 01/05/19 97.3 96/55 (69) 11:45 Intake and Output 01/04/19 01/04/19 01/05/19 1515:00 23:00 07:00 IntakeIntake Total 1150 ml 220 ml OutputOutput Total 900 ml 300 ml BalanceBalance 250 ml -80 ml Exam GENERAL: Elderly gentleman comfortable at rest no acute distress VITAL SIGNS: per chart NECK: Supple. No JVD or lymphadenopathy. CARDIAC EXAM: S1, S2. No added sounds or murmurs. CHEST: Diminished air entry bilaterally with few rales ABDOMEN: Soft, nontender. No guarding or rebound. EXTREMITIES: No cyanosis, clubbing or edema. NEUROLOGIC: Generalized weakness. No focal deficits. Results/Medications Result Diagram: 01/05/19 0754 01/05/19 0754 Results 24 hrs Laboratory Tests Test 01/04/19 20:42 01/05/19 07:54 Sodium Level 124 L 132 L White Blood Count 6.0 Red Blood Count 4.40 L Hemoglobin 13.0 L Hematocrit 38.4 L Mean Corpuscular Volume 87.3 Mean Corpuscular Hemoglobin 29.5 Mean Corpuscular Hemoglobin Concent 33.9 Red Cell Distribution Width 13.2 Platelet Count 344 Mean Platelet Volume 7.9 Immature Granulocytes % 0.500 H Neutrophils % 73.6 Lymphocytes % 11.3 L Monocytes % 12.9 H Eosinophils % 1.5 Basophils % 0.2 Nucleated Red Blood Cells % 0.0 Immature Granulocytes # 0.030 Neutrophils # 4.5 Lymphocytes # 0.7 L Monocytes # 0.8 Eosinophils # 0.1 Basophils # 0.0 Nucleated Red Blood Cells # 0.0 Potassium Level 4.0 Chloride Level 96 L Carbon Dioxide Level 26 Anion Gap 10 Blood Urea Nitrogen 9 Creatinine 0.59 L Est Glomerular Filtrat Rate mL/min Glucose Level 110 Calcium Level 9.1 Medications Current Medications IV Flush (NS 3 ml) 3 ml PER PROTOCOL IV ; Start 01/03/19 at 18:00 Ondansetron HCl (Zofran Inj) 4 mg Q6H PRN IV NAUSEA/VOMITING; Start 01/03/19 at 18:00 Acetaminophen (Tylenol Tab) 650 mg Q6H PRN PO .PAIN 1-3 OR TEMP; Start 01/03/19 at 18:00 Docusate Sodium (Colace) 100 mg Q12H PRN PO .CONSTIPATION; Start 01/03/19 at 18:00 Pantoprazole (Protonix Tab) 40 mg DAILY@06 PO Last administered on 01/05/19 06:07; Admin Dose 40 MG; Start 01/04/19 at 06:00 Enoxaparin Sodium (Lovenox) 40 mg DAILY SC Last administered on 01/05/19 08:55; Admin Dose 40 MG; Start 01/03/19 at 18:00 Albuterol/ Ipratropium (Duoneb) 3 ml Q4H RESP THERAPY HHN Last administered on 01/05/19 13:38; Admin Dose 3 ML; Start 01/03/19 at 21:00 Azithromycin 250 ml @ 250 mls/hr Q24H IV Last administered on 01/04/19 18:15; Admin Dose 250 MLS/HR; Start 01/03/19 at 18:30 Cefepime HCl 50 ml @ 100 mls/hr Q12 IVPB Last administered on 01/05/19at 08:46; Admin Dose 100 MLS/HR; Start 01/04/19 at 11:00 Guaifenesin/ Dextromethorphan (Robitussin Dm Liquid Cup) 10 ml Q4H PRN PO COUGH Last administered on 01/05/19 09:40; Admin Dose 10 ML; Start 01/04/19 at 15:30 Assessment/Plan Hospital Course (Demo Recall) Assessment 1. Patient admitted with bilateral community-acquired pneumonia with multilobar involvement. Clinically improving. 2. History of BPH. 3. Prior history of laparotomy with cholecystectomy. 4. History of pancreatitis Plan 1. Continue antibiotics 2. Aspiration precautions 3. Physical therapy eval patient was previously ambulating FABY LAWSON MD, [facility] Jan 05, 2019 13:57
[2019-01-05] MEDS: AZITHROMYCIN 500MG/NS (PMX) 250 ML IV SCH (17:32)
[2019-01-06] VITALS (13 sets, daily range): BP systolic 110–132; BP diastolic 56–63; PULSE 66–186; RESP 18–19
[2019-01-06] MEDS: ALBUTEROL/IPRATROPIUM (NEB) 3 ML AMP HHN SCH ×6 (01:34→21:00)
[2019-01-06] MEDS: PANTOPRAZOLE (EC) 40 MG TAB PO SCH (05:35)
[2019-01-06] MEDS: CEFEPIME 1GM/50 ML (PMX) 50 ML IVPB SCH ×2 (08:14→21:30)
[2019-01-06] MEDS: ENOXAPARIN 40 MG/0.4 ML SYG SC SCH (08:22)
--- NOTE | 2019-01-06 10:33 | CONS ---
Assessment/Plan Assessment/Plan Assessment/Plan (Daily) Assessment and recommendations; 1. Patient admitted with severe bilateral community-acquired pneumonia with interval improvement. 2. Prior history of enteritis as well as cholecystectomy. 3. BPH. Continue current supportive care. Obtain follow-up chest x-ray in 24 hours. I did have a detailed discussion with the patient's family at bedside and answered all their questions. Consultation Date/Type/Reason Admit Date/Time Jan 03, 2019 at 16:08 Initial Consult Date 01/04/19 Type of Consult Pulmonary Patient is a pleasant 88-year-old gentleman who has been admitted because of cough for the last 2 weeks shortness of breath. Upon evaluation a CT scan of chest was done which showed bilateral pneumonia. Patient is feeling better since admission. Denies any fever, chills, wheezing, complains of cough without any significant sputum production. Also denies any nausea vomiting. By the time I saw the patient, he appeared comfortable. Past medical history; 1. History of BPH. 2. No history of any cardiopulmonary illnesses. 3. History of pink otitis in the past. 4. History of cholecystectomy. 5. History of laparotomy. Medications; reviewed. Allergies; none. Social history; patient never smoked, no stable alcohol or drug abuse. Family history; noncontributory. 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 Review of systems; denies any headache, seizures, dysphagia, chest pain, angina, complains of cough and chest congestion. Complains of very scant sputum production. Denies any hemoptysis. Denies any fever or chills. Any abdominal pain, nausea vomiting. Complains of occasional difficulty with urination. Denies any GI symptoms. Any weight loss. Has good appetite. General exam; elderly male, awake alert, currently in no distress. Date/Time of Note DATE: 01/06/19 TIME: 10:31 24 HR Interval Summary Free Text/Dictation Patient's condition is improving. Reports significant reduction in shortness of breath. Complains of scant cough without any wheezing or sputum production. General exam; elderly male, awake alert, currently in no distress. Exam/Review of Systems Exam Vitals Vital Signs Date Temp Pulse Resp B/P (MAP) Pulse Ox O2 O2 Flow FiO2 Time Delivery Rate 01/06/19 96 2.0 28 09:08 01/06/19 78 24 09:06 01/06/19 98.6 132/63 Nasal 08:30 (86) Cannula Intake and Output 01/05/19 01/05/19 01/06/19 1515:00 23:00 07:00 IntakeIntake Total 50 ml 900 ml 350 ml OutputOutput Total 250 ml BalanceBalance -200 ml 900 ml 350 ml Exam HEENT exam; supple neck, no JVD. No lymphadenopathy. Midline trachea. No thyromegaly. Patient has carious teeth. No neck masses. Chest exam; diminished but clear breath sounds. S1-S2 audible, no murmurs. Regular rhythm. Abdomen exam; soft, scaphoid. Nontender. No organomegaly. Bowel sounds audible. Extremity exam; peripheral edema clubbing. COAT P[employer]DER exam; focal deficit. Results Result Diagram: 01/06/19 0748 01/06/19 0748 Results 24hrs Laboratory Tests Test 01/06/19 07:48 White Blood Count 5.6 Red Blood Count 4.32 L Hemoglobin 12.8 L Hematocrit 38.4 L Mean Corpuscular Volume 88.9 Mean Corpuscular Hemoglobin 29.6 Mean Corpuscular Hemoglobin Concent 33.3 Red Cell Distribution Width 13.4 Platelet Count 331 Mean Platelet Volume 7.9 Immature Granulocytes % 0.400 Neutrophils % 67.9 Lymphocytes % 10.7 L Monocytes % 14.7 H Eosinophils % 5.9 Basophils % 0.4 Nucleated Red Blood Cells % 0.0 Immature Granulocytes # 0.020 Neutrophils # 3.8 Lymphocytes # 0.6 L Monocytes # 0.8 Eosinophils # 0.3 Basophils # 0.0 Nucleated Red Blood Cells # 0.0 Sodium Level 133 L Potassium Level 4.5 Chloride Level 100 Carbon Dioxide Level 23 Anion Gap 10 Blood Urea Nitrogen 13 Creatinine 0.51 L Est Glomerular Filtrat Rate mL/min Glucose Level 103 Calcium Level 9.1 Medications Medication Current Medications IV Flush (NS 3 ml) 3 ml PER PROTOCOL IV ; Start 01/03/19 at 18:00 Ondansetron HCl (Zofran Inj) 4 mg Q6H PRN IV NAUSEA/VOMITING; Start 01/03/19 at 18:00 Acetaminophen (Tylenol Tab) 650 mg Q6H PRN PO .PAIN 1-3 OR TEMP; Start 01/03/19 at 18:00 Docusate Sodium (Colace) 100 mg Q12H PRN PO .CONSTIPATION; Start 01/03/19 at 18:00 Pantoprazole (Protonix Tab) 40 mg DAILY@06 PO Last administered on 01/06/19 05:35; Admin Dose 40 MG; Start 01/04/19 at 06:00 Enoxaparin Sodium (Lovenox) 40 mg DAILY SC Last administered on 01/06/19 08:22; Admin Dose 40 MG; Start 01/03/19 at 18:00 Albuterol/ Ipratropium (Duoneb) 3 ml Q4H RESP THERAPY HHN Last administered on 01/06/19 09:05; Admin Dose 3 ML; Start 01/03/19 at 21:00 Azithromycin 250 ml @ 250 mls/hr Q24H IV Last administered on 01/05/19 17:32; Admin Dose 250 MLS/HR; Start 01/03/19 at 18:30 Cefepime HCl 50 ml @ 100 mls/hr Q12 IVPB Last administered on 01/06/19 08:14; Admin Dose 100 MLS/HR; Start 01/04/19 at 11:00 Guaifenesin/ Dextromethorphan (Robitussin Dm Liquid Cup) 10 ml Q4H PRN PO COUGH Last administered on 01/05/19 17:32; Admin Dose 10 ML; Start 01/04/19 at 15:30 ANISH ATKINSON Jan 06, 2019 10:33
--- NOTE | 2019-01-06 12:13 | PN ---
Date/Time of Note Date/Time of Note DATE: 01/06/19 TIME: 12:12 Assessment/Plan VTE Prophylaxis Risk score (from Ns)>0 risk: 5 SCD applied (from Nsg): Yes Pharmacological prophylaxis: LMWH Lines/Catheters IV Catheter Type (from Nrs): Peripheral IV Urinary Cath still in place: No Assessment/Plan Hospital Course 1. Recurrent episode of pneumonia. Chest x-ray there has showed reticular nodular opacities. CT of the chest with the bronchiolitis/bronchopneumonia 2. Shortness of breath, cough, is likely secondary to bronchospasm. 3. History of some pancreatic surgery, status post ERCP. 4. History of hepatic and renal cyst. 5. 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 History of ventral hernia. 7. Normocytic normochromic anemia 8. Moderate malnourishment Assessment/Plan -Continue with cefepime/azithromycin -pt lost 2 kg d for last 2 month - speech therapy rec. soft diet, some dysphagia. Video swallow -Robitussin as needed cough -We will give Samsca today and recheck sodium -GI proph. Protonix -DVT prophylaxis Lovenox -spoke to the family at bedside - Result Diagram: 01/06/19 0748 01/06/19 0748 Results 24hrs Laboratory Tests Test 01/06/19 07:48 White Blood Count 5.6 Red Blood Count 4.32 L Hemoglobin 12.8 L Hematocrit 38.4 L Mean Corpuscular Volume 88.9 Mean Corpuscular Hemoglobin 29.6 Mean Corpuscular Hemoglobin Concent 33.3 Red Cell Distribution Width 13.4 Platelet Count 331 Mean Platelet Volume 7.9 Immature Granulocytes % 0.400 Neutrophils % 67.9 Lymphocytes % 10.7 L Monocytes % 14.7 H Eosinophils % 5.9 Basophils % 0.4 Nucleated Red Blood Cells % 0.0 Immature Granulocytes # 0.020 Neutrophils # 3.8 Lymphocytes # 0.6 L Monocytes # 0.8 Eosinophils # 0.3 Basophils # 0.0 Nucleated Red Blood Cells # 0.0 Sodium Level 133 L Potassium Level 4.5 Chloride Level 100 Carbon Dioxide Level 23 Anion Gap 10 Blood Urea Nitrogen 13 Creatinine 0.51 L Est Glomerular Filtrat Rate mL/min Glucose Level 103 Calcium Level 9.1 Subjective 24 Hr Interval Summary Constitutional: no complaints, improved Respiratory: cough Exam/Review of Systems Exam Vitals Vital Signs Date Temp Pulse Resp B/P (MAP) Pulse Ox O2 O2 Flow FiO2 Time Delivery Rate 01/06/19 97.6 81 18 121/57 96 Nasal 2.0 11:53 (78) Cannula 01/06/19 28 09:08 Intake and Output 01/05/19 01/05/19 01/06/19 1515:00 23:00 07:00 IntakeIntake Total 50 ml 900 ml 350 ml OutputOutput Total 250 ml BalanceBalance -200 ml 900 ml 350 ml Constitutional: alert, oriented Respiratory: congested cough, diminished breath sounds, other (rhonchi) Gastrointestinal: soft Results Results 24hrs Laboratory Tests Test 01/06/19 07:48 White Blood Count 5.6 Red Blood Count 4.32 L Hemoglobin 12.8 L Hematocrit 38.4 L Mean Corpuscular Volume 88.9 Mean Corpuscular Hemoglobin 29.6 Mean Corpuscular Hemoglobin Concent 33.3 Red Cell Distribution Width 13.4 Platelet Count 331 Mean Platelet Volume 7.9 Immature Granulocytes % 0.400 Neutrophils % 67.9 Lymphocytes % 10.7 L Monocytes % 14.7 H Eosinophils % 5.9 Basophils % 0.4 Nucleated Red Blood Cells % 0.0 Immature Granulocytes # 0.020 Neutrophils # 3.8 Lymphocytes # 0.6 L Monocytes # 0.8 Eosinophils # 0.3 Basophils # 0.0 Nucleated Red Blood Cells # 0.0 Sodium Level 133 L Potassium Level 4.5 Chloride Level 100 Carbon Dioxide Level 23 Anion Gap 10 Blood Urea Nitrogen 13 Creatinine 0.51 L Est Glomerular Filtrat Rate mL/min Glucose Level 103 Calcium Level 9.1 Medications Medication Current Medications IV Flush (NS 3 ml) 3 ml PER PROTOCOL IV ; Start 01/03/19 at 18:00 Ondansetron HCl (Zofran Inj) 4 mg Q6H PRN IV NAUSEA/VOMITING; Start 01/03/19 at 18:00 Acetaminophen (Tylenol Tab) 650 mg Q6H PRN PO .PAIN 1-3 OR TEMP; Start 01/03/19 at 18:00 Docusate Sodium (Colace) 100 mg Q12H PRN PO .CONSTIPATION; Start 01/03/19 at 18:00 Pantoprazole (Protonix Tab) 40 mg DAILY@06 PO Last administered on 01/06/19at 05:35; Admin Dose 40 MG; Start 01/04/19 at 06:00 Enoxaparin Sodium (Lovenox) 40 mg DAILY SC Last administered on 01/06/19 08:22; Admin Dose 40 MG; Start 01/03/19 at 18:00 Albuterol/ Ipratropium (Duoneb) 3 ml Q4H RESP THERAPY HHN Last administered on 01/06/19 09:05; Admin Dose 3 ML; Start 01/03/19 at 21:00 Azithromycin 250 ml @ 250 mls/hr Q24H IV Last administered on 01/05/19 17:32; Admin Dose 250 MLS/HR; Start 01/03/19 at 18:30 Cefepime HCl 50 ml @ 100 mls/hr Q12 IVPB Last administered on 01/06/19 08:14; Admin Dose 100 MLS/HR; Start 01/04/19 at 11:00 Guaifenesin/ Dextromethorphan (Robitussin Dm Liquid Cup) 10 ml Q4H PRN PO COUGH Last administered on 01/05/19 17:32; Admin Dose 10 ML; Start 01/04/19 at 15:30 FREYA MONDRAGON Jan 06, 2019 12:13
[2019-01-06] MEDS ORDERED: DILTIAZEM 25 MG INJ IV PRN (17:30)
[2019-01-06] MEDS: AZITHROMYCIN 500MG/NS (PMX) 250 ML IV SCH (17:41)
[2019-01-07] VITALS (9 sets, daily range): BP systolic 100–129; BP diastolic 54–61; PULSE 84–96; RESP 16–20
[2019-01-07] MEDS: ALBUTEROL/IPRATROPIUM (NEB) 3 ML AMP HHN SCH ×6 (01:50→17:55)
[2019-01-07] MEDS: PANTOPRAZOLE (EC) 40 MG TAB PO SCH (06:00)
[2019-01-07] MEDS: CEFEPIME 1GM/50 ML (PMX) 50 ML IVPB SCH ×2 (08:37→22:37)
[2019-01-07] MEDS: ENOXAPARIN 40 MG/0.4 ML SYG SC SCH (08:46)
--- NOTE | 2019-01-07 11:28 | CONS ---
Assessment/Plan Assessment/Plan Assessment/Plan (Daily) Assessment and recommendations; 1. Patient admitted with severe bilateral community-acquired pneumonia, clinically improving. Currently on appropriate antimicrobial regimen. 2. BPH. 3. History of prior cholecystectomy. Continue current supportive care. Chest x-ray is pending. I did have a de tailed discussion with the patient's family at bedside and answered all their questions. Consultation Date/Type/Reason Admit Date/Time Jan 03, 2019 at 16:08 Initial Consult Date 01/04/19 Type of Consult Pulmonary Patient is a pleasant 88-year-old gentleman who has been admitted because of cough for the last 2 weeks shortness of breath. Upon evaluation a CT scan of chest was done which showed bilateral pneumonia. Patient is feeling better since admission. Denies any fever, chills, wheezing, complains of cough without any significant sputum production. Also denies any nausea vomiting. By the time I saw the patient, he appeared comfortable. Past medical history; 1. History of BPH. 2. No history of any cardiopulmonary illnesses. 3. History of pink otitis in the past. 4. History of cholecystectomy. 5. History of laparotomy. Medications; reviewed. Allergies; none. Social history; patient never smoked, no stable alcohol or drug abuse. Family history; noncontributory. 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 Review of systems; denies any headache, seizures, dysphagia, chest pain, angina, complains of cough and chest congestion. Complains of very scant sputum production. Denies any hemoptysis. Denies any fever or chills. Any abdominal pain, nausea vomiting. Complains of occasional difficulty with urination. Denies any GI symptoms. Any weight loss. Has good appetite. General exam; elderly male, awake alert, currently in no distress. Date/Time of Note DATE: 01/07/19 TIME: 11:27 24 HR Interval Summary Free Text/Dictation Patient's condition is stable. General exam; elderly male, awake alert, currently no distress. Exam/Review of Systems Exam Vitals Vital Signs Date Temp Pulse Resp B/P (MAP) Pulse Ox O2 O2 Flow FiO2 Time Delivery Rate 01/07/19 2.0 28 08:53 01/07/19 88 20 99 08:40 01/07/19 Nasal 08:00 Cannula 01/07/19 98.9 128/60 07:10 (82) Intake and Output 01/06/19 01/06/19 01/07/19 1515:00 23:00 07:00 IntakeIntake Total 50 ml 800 ml 350 ml BalanceBalance 50 ml 800 ml 350 ml Exam H EENT exam; supple neck, no JVD. No lymphadenopathy. Midline trachea. No thyromegaly. Patient has carious teeth. Chest exam; diminished but clear breath sounds. S1-S2 audible, no murmurs. Regular rhythm. Abdomen exam; soft, nontender. No organomegaly. Bowel sounds audible. Extremity exam; no peripheral edema clubbing. [employer] exam; focal deficit. Results Result Diagram: 01/07/19 0548 01/07/19 0548 Results 24hrs Laboratory Tests Test 01/07/19 05:48 White Blood Count 9.3 # Red Blood Count 4.04 L Hemoglobin 12.3 L Hematocrit 36.2 L Mean Corpuscular Volume 89.6 Mean Corpuscular Hemoglobin 30.4 Mean Corpuscular Hemoglobin Concent 34.0 Red Cell Distribution Width 13.2 Platelet Count 351 Mean Platelet Volume 8.0 Immature Granulocytes % 0.500 H Neutrophils % 69.2 Lymphocytes % 12.6 L Monocytes % 12.6 H Eosinophils % 4.9 Basophils % 0.2 Nucleated Red Blood Cells % 0.0 Immature Granulocytes # 0.050 H Neutrophils # 6.5 Lymphocytes # 1.2 Monocytes # 1.2 H Eosinophils # 0.5 Basophils # 0.0 Nucleated Red Blood Cells # 0.0 Sodium Level 131 L Potassium Level 3.8 Chloride Level 98 Carbon Dioxide Level 27 Anion Gap 6 Blood Urea Nitrogen 15 Creatinine 0.55 L Est Glomerular Filtrat Rate mL/min Glucose Level 111 Calcium Level 8.9 Iron Level 24 L Total Iron Binding Capacity 194 L Percent Iron Saturation 12 L Medications Medication Current Medications IV Flush (NS 3 ml) 3 ml PER PROTOCOL IV ; Start 01/03/19 at 18:00 Ondansetron HCl (Zofran Inj) 4 mg Q6H PRN IV NAUSEA/VOMITING; Start 01/03/19 at 18:00 Acetaminophen (Tylenol Tab) 650 mg Q6H PRN PO .PAIN 1-3 OR TEMP; Start 01/03/19 at 18:00 Docusate Sodium (Colace) 100 mg Q12H PRN PO .CONSTIPATION; Start 01/03/19 at 18:00 Pantoprazole (Protonix Tab) 40 mg DAILY@06 PO Last administered on 01/06/19 05:35; Admin Dose 40 MG; Start 01/04/19 at 06:00 Enoxaparin Sodium (Lovenox) 40 mg DAILY SC Last administered on 01/07/19 08:46; Admin Dose 40 MG; Start 01/03/19 at 18:00 Albuterol/ Ipratropium (Duoneb) 3 ml Q4H RESP THERAPY HHN Last administered on 01/07/19 08:40; Admin Dose 3 ML; Start 01/03/19 at 21:00 Azithromycin 250 ml @ 250 mls/hr Q24H IV Last administered on 01/06/19 17:41; Admin Dose 250 MLS/HR; Start 01/03/19 at 18:30 Cefepime HCl 50 ml @ 100 mls/hr Q12 IVPB Last administered on 01/07/19 08:37; Admin Dose 100 MLS/HR; Start 01/04/19 at 11:00 Guaifenesin/ Dextromethorphan (Robitussin Dm Liquid Cup) 10 ml Q4H PRN PO COUGH Last administered on 01/05/19 17:32; Admin Dose 10 ML; Start 01/04/19 at 15:30 Diltiazem HCl (Cardizem Iv) 10 mg Q6H PRN IV Tachycardia, HR > 130; Start 01/06/19 at 17:30 ANISH ATKINSON Jan 07, 2019 11:28
--- NOTE | 2019-01-07 11:51 | PN ---
Date/Time of Note Date/Time of Note DATE: 01/07/19 TIME: 11:51 Assessment/Plan VTE Prophylaxis Risk score (from Ns)>0 risk: 8 SCD applied (from Ns): No SCD contraindicated: low risk/ambulating Pharmacological prophylaxis: LMWH Lines/Catheters IV Catheter Type (from [facility]): Peripheral IV Urinary Cath still in place: No Assessment/Plan Hospital Course 1. Recurrent episode of pneumonia. Chest x-ray there has showed reticular nodular opacities. CT of the chest with the bronchiolitis/bronchopneumonia 2. Shortness of breath, cough, is likely secondary to bronchospasm. 3. History of some pancreatic surgery, status post ERCP. 4. History of hepatic and renal cyst. 5. 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 History of ventral hernia. 7. Normocytic normochromic anemia 8. Moderate malnourishment Assessment/Plan -Continue with cefepime/azithromycin -Medsurg -pt lost 2 kg d for last 2 month -ferrlicit - speech therapy rec. soft diet, some dysphagia. Video swallow Tuesday -Robitussin as needed cough - Samsca today -GI proph. Protonix -DVT prophylaxis Lovenox -spoke to the family at bedside Result Diagram: 01/07/19 0548 01/07/19 0548 Results 24hrs Laboratory Tests Test 01/07/19 05:48 White Blood Count 9.3 # Red Blood Count 4.04 L Hemoglobin 12.3 L Hematocrit 36.2 L Mean Corpuscular Volume 89.6 Mean Corpuscular Hemoglobin 30.4 Mean Corpuscular Hemoglobin Concent 34.0 Red Cell Distribution Width 13.2 Platelet Count 351 Mean Platelet Volume 8.0 Immature Granulocytes % 0.500 H Neutrophils % 69.2 Lymphocytes % 12.6 L Monocytes % 12.6 H Eosinophils % 4.9 Basophils % 0.2 Nucleated Red Blood Cells % 0.0 Immature Granulocytes # 0.050 H Neutrophils # 6.5 Lymphocytes # 1.2 Monocytes # 1.2 H Eosinophils # 0.5 Basophils # 0.0 Nucleated Red Blood Cells # 0.0 Sodium Level 131 L Potassium Level 3.8 Chloride Level 98 Carbon Dioxide Level 27 Anion Gap 6 Blood Urea Nitrogen 15 Creatinine 0.55 L Est Glomerular Filtrat Rate mL/min Glucose Level 111 Calcium Level 8.9 Iron Level 24 L Total Iron Binding Capacity 194 L Percent Iron Saturation 12 L Subjective 24 Hr Interval Summary Respiratory: cough Exam/Review of Systems Exam Vitals Vital Signs Date Temp Pulse Resp B/P (MAP) Pulse Ox O2 O2 Flow FiO2 Time Delivery Rate 01/07/19 2.0 28 08:53 01/07/19 88 20 99 08:40 01/07/19 Nasal 08:00 Cannula 01/07/19 98.9 128/60 07:10 (82) Intake and Output 01/06/19 01/06/19 01/07/19 1515:00 23:00 07:00 IntakeIntake Total 50 ml 800 ml 350 ml BalanceBalance 50 ml 800 ml 350 ml Constitutional: alert, oriented Neck: supple Respiratory: diminished breath sounds Cardiovascular: regular rate and rhythm Gastrointestinal: soft Skin: other (sun damaged spots) Lymph: other (submandibular lymph nodes) Results Results 24hrs Laboratory Tests Test 01/07/19 05:48 White Blood Count 9.3 # Red Blood Count 4.04 L Hemoglobin 12.3 L Hematocrit 36.2 L Mean Corpuscular Volume 89.6 Mean Corpuscular Hemoglobin 30.4 Mean Corpuscular Hemoglobin Concent 34.0 Red Cell Distribution Width 13.2 Platelet Count 351 Mean Platelet Volume 8.0 Immature Granulocytes % 0.500 H Neutrophils % 69.2 Lymphocytes % 12.6 L Monocytes % 12.6 H Eosinophils % 4.9 Basophils % 0.2 Nucleated Red Blood Cells % 0.0 Immature Granulocytes # 0.050 H Neutrophils # 6.5 Lymphocytes # 1.2 Monocytes # 1.2 H Eosinophils # 0.5 Basophils # 0.0 Nucleated Red Blood Cells # 0.0 Sodium Level 131 L Potassium Level 3.8 Chloride Level 98 Carbon Dioxide Level 27 Anion Gap 6 Blood Urea Nitrogen 15 Creatinine 0.55 L Est Glomerular Filtrat Rate mL/min Glucose Level 111 Calcium Level 8.9 Iron Level 24 L Total Iron Binding Capacity 194 L Percent Iron Saturation 12 L Medications Medication Current Medications IV Flush (NS 3 ml) 3 ml PER PROTOCOL IV ; Start 01/03/19 at 18:00 Ondansetron HCl (Zofran Inj) 4 mg Q6H PRN IV NAUSEA/VOMITING; Start 01/03/19 at 18:00 Acetaminophen (Tylenol Tab) 650 mg Q6H PRN PO .PAIN 1-3 OR TEMP; Start 01/03/19 at 18:00 Docusate Sodium (Colace) 100 mg Q12H PRN PO .CONSTIPATION; Start 01/03/19 at 18:00 Pantoprazole (Protonix Tab) 40 mg DAILY@06 PO Last administered on 01/06/19 05:35; Admin Dose 40 MG; Start 01/04/19 at 06:00 Enoxaparin Sodium (Lovenox) 40 mg DAILY SC Last administered on 01/07/19 08:46; Admin Dose 40 MG; Start 01/03/19 at 18:00 Albuterol/ Ipratropium (Duoneb) 3 ml Q4H RESP THERAPY HHN Last administered on 01/07/19 08:40; Admin Dose 3 ML; Start 01/03/19 at 21:00 Azithromycin 250 ml @ 250 mls/hr Q24H IV Last administered on 01/06/19at 17:41; Admin Dose 250 MLS/HR; Start 01/03/19 at 18:30 Cefepime HCl 50 ml @ 100 mls/hr Q12 IVPB Last administered on 01/07/19 08:37; Admin Dose 100 MLS/HR; Start 01/04/19 at 11:00 Guaifenesin/ Dextromethorphan (Robitussin Dm Liquid Cup) 10 ml Q4H PRN PO COUGH Last administered on 01/05/19at 17:32; Admin Dose 10 ML; Start 01/04/19 at 15:30 Diltiazem HCl (Cardizem Iv) 10 mg Q6H PRN IV Tachycardia, HR > 130; Start 01/06/19 at 17:30 FREYA MONDRAGON Jan 07, 2019 11:51
[2019-01-07] MEDS ORDERED: TOLVAPTAN 15 MG TABLET PO ONE (13:00)
[2019-01-07] MEDS: SOD FERRIC GLUC COMPLX 125 MG in SOD CHLORIDE 0.9% 100 ML IVPB SCH (13:06)
[2019-01-07] MEDS: GUAIFENESIN/DM 5ML CUP PO PRN (16:00)
[2019-01-07] MEDS: AZITHROMYCIN 500MG/NS (PMX) 250 ML IV SCH (20:44)
[2019-01-08] MEDS: ALBUTEROL/IPRATROPIUM (NEB) 3 ML AMP HHN SCH ×6 (00:23→20:11)
[2019-01-08 02:00] VITALS: BP 103/57; PULSE 62; RESP 17
[2019-01-08] MEDS: PANTOPRAZOLE (EC) 40 MG TAB PO SCH (05:16)
[2019-01-08 08:00] VITALS: BP 121/59; PULSE 84; RESP 17
[2019-01-08] MEDS: CEFEPIME 1GM/50 ML (PMX) 50 ML IVPB SCH ×2 (09:51→20:58)
[2019-01-08] MEDS: ENOXAPARIN 40 MG/0.4 ML SYG SC SCH (09:51)
[2019-01-08] MEDS: GUAIFENESIN/DM 5ML CUP PO PRN (12:08)
--- NOTE | 2019-01-08 14:26 | PN ---
Date/Time of Note Date/Time of Note DATE: 01/08/19 TIME: 14:26 Assessment/Plan VTE Prophylaxis Risk score (from Ns)>0 risk: 6 SCD applied (from Ns): Yes Pharmacological prophylaxis: NA/contraindicated Pharm contraindication: low risk/ambulating Lines/Catheters IV Catheter Type (from [facility]): Peripheral IV Urinary Cath still in place: No Assessment/Plan Assessment/Plan Hospital Course 1. Recurrent episode of pneumonia. Chest x-ray there has showed reticular n odular opacities. CT of the chest with the bronchiolitis/bronchopneumonia 2. Shortness of breath, cough, is likely secondary to bronchospasm. 3. History of some pancreatic surgery, status post ERCP. 4. History of hepatic and renal cyst. 5. 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 History of ventral hernia. 7. Normocytic normochromic anemia 8. Moderate malnourishment Assessment/Plan -Continue with cefepime/azithromycin -ferrlicit -Robitussin as needed cough -GI proph. Protonix -DVT prophylaxis Lovenox -spoke to the family at bedside - fu pul recs Result Diagram: 01/08/19 0652 01/08/19 0652 Results 24hrs Laboratory Tests Test 01/08/19 06:52 White Blood Count 7.6 Red Blood Count 4.24 L Hemoglobin 12.5 L Hematocrit 37.8 L Mean Corpuscular Volume 89.2 Mean Corpuscular Hemoglobin 29.5 Mean Corpuscular Hemoglobin Concent 33.1 Red Cell Distribution Width 13.5 Platelet Count 358 Mean Platelet Volume 8.1 Immature Granulocytes % 0.400 Neutrophils % 71.2 Lymphocytes % 10.2 L Monocytes % 11.6 H Eosinophils % 6.3 Basophils % 0.3 Nucleated Red Blood Cells % 0.0 Immature Granulocytes # 0.030 Neutrophils # 5.4 Lymphocytes # 0.8 Monocytes # 0.9 Eosinophils # 0.5 Basophils # 0.0 Nucleated Red Blood Cells # 0.0 Sodium Level 134 L Potassium Level 3.9 Chloride Level 100 Carbon Dioxide Level 26 Anion Gap 8 Blood Urea Nitrogen 13 Creatinine 0.50 L Est Glomerular Filtrat Rate mL/min Glucose Level 102 Calcium Level 9.1 Subjective 24 Hr Interval Summary Free Text/Dictation feels ok Exam/Review of Systems Exam Vitals Vital Signs Date Temp Pulse Resp B/P (MAP) Pulse Ox O2 O2 Flow FiO2 Time Delivery Rate 01/08/19 Nasal 2.0 08:00 Cannula 01/08/19 97.5 84 17 121/59 94 08:00 (79) 01/08/19 28 00:23 Intake and Output 01/07/19 01/07/19 01/08/19 1515:00 23:00 07:00 IntakeIntake Total 600 ml 550 ml 50 ml OutputOutput Total 200 ml 300 ml BalanceBalance 400 ml 550 ml -250 ml Exam Constitutional: alert, oriented Neck: supple Respiratory: diminished breath sounds Cardiovascular: regular rate and rhythm Gastrointestinal: soft Skin: other (sun damaged spots) Lymph: other (submandibular lymph nodes) Results Results 24hrs Laboratory Tests Test 01/08/19 06:52 White Blood Count 7.6 Red Blood Count 4.24 L Hemoglobin 12.5 L Hematocrit 37.8 L Mean Corpuscular Volume 89.2 Mean Corpuscular Hemoglobin 29.5 Mean Corpuscular Hemoglobin Concent 33.1 Red Cell Distribution Width 13.5 Platelet Count 358 Mean Platelet Volume 8.1 Immature Granulocytes % 0.400 Neutrophils % 71.2 Lymphocytes % 10.2 L Monocytes % 11.6 H Eosinophils % 6.3 Basophils % 0.3 Nucleated Red Blood Cells % 0.0 Immature Granulocytes # 0.030 Neutrophils # 5.4 Lymphocytes # 0.8 Monocytes # 0.9 Eosinophils # 0.5 Basophils # 0.0 Nucleated Red Blood Cells # 0.0 Sodium Level 134 L Potassium Level 3.9 Chloride Level 100 Carbon Dioxide Level 26 Anion Gap 8 Blood Urea Nitrogen 13 Creatinine 0.50 L Est Glomerular Filtrat Rate mL/min Glucose Level 102 Calcium Level 9.1 Medications Medication Current Medications IV Flush (NS 3 ml) 3 ml PER PROTOCOL IV ; Start 01/03/19 at 18:00 Ondansetron HCl (Zofran Inj) 4 mg Q6H PRN IV NAUSEA/VOMITING; Start 01/03/19 at 18:00 Acetaminophen (Tylenol Tab) 650 mg Q6H PRN PO .PAIN 1-3 OR TEMP; Start 01/03/19 at 18:00 Docusate Sodium (Colace) 100 mg Q12H PRN PO .CONSTIPATION; Start 01/03/19 at 18:00 Pantoprazole (Protonix Tab) 40 mg DAILY@06 PO Last administered on 01/08/19 05:16; Admin Dose 40 MG; Start 01/04/19 at 06:00 Enoxaparin Sodium (Lovenox) 40 mg DAILY SC Last administered on 01/08/19 09:51; Admin Dose 40 MG; Start 01/03/19 at 18:00 Albuterol/ Ipratropium (Duoneb) 3 ml Q4H RESP THERAPY HHN Last administered on 01/08/19 09:15; Admin Dose 3 ML; Start 01/03/19 at 21:00 Azithromycin 250 ml @ 250 mls/hr Q24H IV Last administered on 01/07/19 20:44; Admin Dose 250 MLS/HR; Start 01/03/19 at 18:30 Cefepime HCl 50 ml @ 100 mls/hr Q12 IVPB Last administered on 01/08/19 09:51; Admin Dose 100 MLS/HR; Start 01/04/19 at 11:00 Guaifenesin/ Dextromethorphan (Robitussin Dm Liquid Cup) 10 ml Q4H PRN PO COUGH Last administered on 01/08/19 12:08; Admin Dose 10 ML; Start 01/04/19 at 15:30 Diltiazem HCl (Cardizem Iv) 10 mg Q6H PRN IV Tachycardia, HR > 130; Start 01/06/19 at 17:30 Ferric Sodium Gluconate Complex 125 mg/Sodium Chloride 100 ml @ 100 mls/hr DAILY@1300 IVPB Last administered on 01/07/19 13:06; Admin Dose 100 MLS/HR; Start 01/07/19 at 13:00; Stop 01/09/19 at 13:59 SARAN ALFRED MD Jan 08, 2019 14:26
[2019-01-08] MEDS: SOD FERRIC GLUC COMPLX 125 MG in SOD CHLORIDE 0.9% 100 ML IVPB SCH (15:15)
[2019-01-08] MEDS: AZITHROMYCIN 500MG/NS (PMX) 250 ML IV SCH (17:44)
[2019-01-08 20:20] VITALS: BP 109/57; PULSE 83; RESP 18
[2019-01-09] MEDS: ALBUTEROL/IPRATROPIUM (NEB) 3 ML AMP HHN SCH ×5 (01:32→21:13)
[2019-01-09 02:15] VITALS: BP 135/62; PULSE 81; RESP 18
[2019-01-09] MEDS: GUAIFENESIN/DM 5ML CUP PO PRN (03:01)
[2019-01-09] MEDS: PANTOPRAZOLE (EC) 40 MG TAB PO SCH (05:51)
[2019-01-09 08:15] VITALS: BP 133/60; PULSE 86; RESP 18
[2019-01-09] MEDS: CEFEPIME 1GM/50 ML (PMX) 50 ML IVPB SCH ×2 (08:35→20:44)
[2019-01-09] MEDS: ENOXAPARIN 40 MG/0.4 ML SYG SC SCH (08:39)
--- NOTE | 2019-01-09 11:00 | CONS ---
Consultation Date/Type/Reason Admit Date/Time Jan 03, 2019 at 16:08 Initial Consult Date 01/04/19 Type of Consult Pulmonary Patient is a pleasant 88-year-old gentleman who has been admitted because of cough for the last 2 weeks shortness of breath. Upon evaluation a CT scan of chest was done which showed bilateral pneumonia. Patient is feeling better since admission. Denies any fever, chills, wheezing, complains of cough without any significant sputum production. Also denies any nausea vomiting. By the time I saw the patient, he appeared comfortable. Past medical history; 1. History of BPH. 2. No history of any cardiopulmonary illnesses. 3. History of pink otitis in the past. 4. History of cholecystectomy. 5. History of laparotomy. Medications; reviewed. Allergies; none. Social history; patient never smoked, no stable alcohol or drug abuse. Family history; noncontributory. Occupational history; patient used to perform [employer] work. Review of systems; denies any headache, seizures, dysphagia, chest pain, angina, complains of cough and chest congestion. Complains of very scant sputum production. Denies any hemoptysis. Denies any fever or chills. Any abdominal pain, nausea vomiting. Complains of occasional difficulty with urination. Denies any GI symptoms. Any weight loss. Has good appetite. General exam; elderly male, awake alert, currently in no distress. Date/Time of Note DATE: 01/09/19 TIME: 10:58 24 HR Interval Summary Free Text/Dictation Patient's condition is stable. Denies any shortness of breath, coughing, chest congestion or wheezing. General exam; elderly male, awake alert, laying comfortably in bed. On room ai r. Currently in no distress. HEENT exam; supple neck, no JVD. No lymphadenopathy. Midline trachea. No thyromegaly. No neck masses. Patient is edentulous. Chest exam; diminished but clear breath sounds. S1-S2 audible, no murmurs. Regular rhythm. Abdomen exam; soft, nontender. No organomegaly. Bowel sounds audible. Extremity exam; no peripheral edema clubbing. 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 Assessment recommendations; 1. Patient admitted with bilateral pneumonia with significant interval clinical improvement. 2. History of BPH. 3. History of cholecystectomy as well as laparotomy in the past. 4. Interval resolution of hypoxemia. Continue current supportive care. Consider discharge on combination of oral Levaquin and doxycycline for 5 additional days. I did have a detailed disc ussion the patient's family at bedside and answered all their questions. Patient lives with the family and is ambulatory at home. Exam/Review of Systems Exam Vitals Vital Signs Date Temp Pulse Resp B/P (MAP) Pulse Ox O2 O2 Flow FiO2 Time Delivery Rate 01/09/19 98.4 86 18 133/60 94 Room Air 08:15 (84) 01/09/19 21 05:17 01/08/19 2.0 23:47 Intake and Output 01/08/19 01/08/19 01/09/19 1515:00 23:00 07:00 IntakeIntake Total 50 ml 400 ml BalanceBalance 50 ml 400 ml Results Result Diagram: 01/08/1952 01/08/19651 Medications Medication Current Medications IV Flush (NS 3 ml) 3 ml PER PROTOCOL IV ; Start 01/03/19 at 18:00 Ondansetron HCl (Zofran Inj) 4 mg Q6H PRN IV NAUSEA/VOMITING; Start 01/03/19 at 18:00 Acetaminophen (Tylenol Tab) 650 mg Q6H PRN PO .PAIN 1-3 OR TEMP; Start 01/03/19 at 18:00 Docusate Sodium (Colace) 100 mg Q12H PRN PO .CONSTIPATION; Start 01/03/19 at 18:00 Pantoprazole (Protonix Tab) 40 mg DAILY@06 PO Last administered on 01/09/19at 05:51; Admin Dose 40 MG; Start 01/04/19 at 06:00 Enoxaparin Sodium (Lovenox) 40 mg DAILY SC Last administered on 01/09/19at 08:39; Admin Dose 40 MG; Start 01/03/19 at 18:00 Albuterol/ Ipratropium (Duoneb) 3 ml Q4H RESP THERAPY HHN Last administered on 01/09/19at 10:01; Admin Dose 3 ML; Start 01/03/19 at 21:00 Azithromycin 250 ml @ 250 mls/hr Q24H IV Last administered on 01/08/19at 17:44; Admin Dose 250 MLS/HR; Start 01/03/19 at 18:30 Cefepime HCl 50 ml @ 100 mls/hr Q12 IVPB Last administered on 01/09/19at 08:35; Admin Dose 100 MLS/HR; Start 01/04/19 at 11:00 Guaifenesin/ Dextromethorphan (Robitussin Dm Liquid Cup) 10 ml Q4H PRN PO COUGH Last administered on 01/09/19at 03:01; Admin Dose 10 ML; Start 01/04/19 at 15:30 Diltiazem HCl (Cardizem Iv) 10 mg Q6H PRN IV Tachycardia, HR > 130; Start 01/06/19 at 17:30 Ferric Sodium Gluconate Complex 125 mg/Sodium Chloride 100 ml @ 100 mls/hr DAILY@1300 IVPB Last administered on 01/08/19at 15:15; Admin Dose 100 MLS/HR; Start 01/07/19 at 13:00; Stop 01/09/19 at 13:59 ANISH ATKINSON Jan 09, 2019 11:00
[2019-01-09] MEDS: SOD FERRIC GLUC COMPLX 125 MG in SOD CHLORIDE 0.9% 100 ML IVPB SCH (12:43)
[2019-01-09 14:20] VITALS: BP 101/59; PULSE 92; RESP 18
--- NOTE | 2019-01-09 16:28 | PN ---
Date/Time of Note Date/Time of Note DATE: 01/09/19 TIME: 16:27 Assessment/Plan VTE Prophylaxis Risk score (from Ns)>0 risk: 9 SCD applied (from Ns): Yes Pharmacological prophylaxis: NA/contraindicated Pharm contraindication: low risk/ambulating Lines/Catheters IV Catheter Type (from Nrsg): Peripheral IV Urinary Cath still in place: No Assessment/Plan Assessment/Plan 1. Recurrent episode of pneumonia. Chest x-ray there has showed reticular nodular opacities. CT of the chest with the bronchiolitis/bronchopneumonia 2. Shortness of breath, cough, is likely secondary to bronchospasm. 3. History of some pancreatic surgery, status post ERCP. 4. History of hepatic and renal cyst. 5. 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 History of ventral hernia. 7. Normocytic normochromic anemia 8. Moderate malnourishment Assessment/Plan -Continue with cefepime/azithromycin -ferrlicit -Robitussin as needed cough -GI proph. Protonix -DVT prophylaxis Lovenox -spoke to the family at bedside - fu pul recs Check with a ambulatory pulse ox. PT eval DC planning HOME health Result Diagram: 01/08/19 0652 01/08/19 0652 Subjective 24 Hr Interval Summary Free Text/Dictation Feels better. BREATHING is improved. Exam/Review of Systems Exam Vitals Vital Signs Date Temp Pulse Resp B/P (MAP) Pulse Ox O2 O2 Flow FiO2 Time Delivery Rate 01/09/19 98.1 92 18 101/59 93 Room Air 14:20 (73) 01/09/19 21 13:24 01/09/19 2.0 08:00 Intake and Output 01/08/19 01/08/19 01/09/19 1515:00 23:00 07:00 IntakeIntake Total 50 ml 400 ml BalanceBalance 50 ml 400 ml Exam Constitutional: alert, oriented Respiratory: congested cough, diminished breath sounds, other (rhonchi) IMPROVED Gastrointestinal: soft Medications Medication Current Medications IV Flush (NS 3 ml) 3 ml PER PROTOCOL IV ; Start 01/03/19 at 18:00 Ondansetron HCl (Zofran Inj) 4 mg Q6H PRN IV NAUSEA/VOMITING; Start 01/03/19 at 18:00 Acetaminophen (Tylenol Tab) 650 mg Q6H PRN PO .PAIN 1-3 OR TEMP; Start 01/03/19 at 18:00 Docusate Sodium (Colace) 100 mg Q12H PRN PO .CONSTIPATION; Start 01/03/19 at 18:00 Pantoprazole (Protonix Tab) 40 mg DAILY@06 PO Last administered on 01/09/19at 05:51; Admin Dose 40 MG; Start 01/04/19 at 06:00 Enoxaparin Sodium (Lovenox) 40 mg DAILY SC Last administered on 01/09/19at 08:39; Admin Dose 40 MG; Start 01/03/19 at 18:00 Albuterol/ Ipratropium (Duoneb) 3 ml Q4H RESP THERAPY HHN Last administered on 01/09/19at 13:22; Admin Dose 3 ML; Start 01/03/19 at 21:00 Azithromycin 250 ml @ 250 mls/hr Q24H IV Last administered on 01/08/19at 17:44; Admin Dose 250 MLS/HR; Start 01/03/19 at 18:30 Cefepime HCl 50 ml @ 100 mls/hr Q12 IVPB Last administered on 01/09/19 08:35; Admin Dose 100 MLS/HR; Start 01/04/19 at 11:00 Guaifenesin/ Dextromethorphan (Robitussin Dm Liquid Cup) 10 ml Q4H PRN PO COUGH Last administered on 01/09/19 03:01; Admin Dose 10 ML; Start 01/04/19 at 15:30 Diltiazem HCl (Cardizem Iv) 10 mg Q6H PRN IV Tachycardia, HR > 130; Start 01/06/19 at 17:30 SARAN ALFRED MD Jan 09, 2019 16:28
[2019-01-09] MEDS: AZITHROMYCIN 500MG/NS (PMX) 250 ML IV SCH (17:39)
[2019-01-09 20:28] VITALS: BP 103/55; PULSE 88; RESP 18
[2019-01-10] MEDS: ALBUTEROL/IPRATROPIUM (NEB) 3 ML AMP HHN SCH ×4 (00:27→13:34)
[2019-01-10 02:23] VITALS: BP 114/64; PULSE 79; RESP 18
[2019-01-10] MEDS ORDERED: LANSOPRAZOLE 30 MG CAP PO SCH (06:00)
[2019-01-10] MEDS: CEFEPIME 1GM/50 ML (PMX) 50 ML IVPB SCH (08:21)
[2019-01-10] MEDS: ENOXAPARIN 40 MG/0.4 ML SYG SC SCH (08:24)
[2019-01-10 09:31] VITALS: BP 128/62; PULSE 86; RESP 18
--- NOTE | 2019-01-10 11:01 | PDOCDIS ---
Discharge Instructions DIAGNOSIS Discharge Diagnosis Penumonia CONDITION [id number] Patient Condition: Geyiw1a Fair HOME CARE INSTRUCTIONS: [id number] Special Diet: [id number] mechanical soft ACTIVITY: [id number] Activity Restrictions: [id number] Slowly Increase Activity Rest between Activity Avoid heavy lifting FOLLOW UP/APPOINTMENTS Follow-up Plan fu pcp in 1 week fu Pulm in 2-3 weeks return to ER if has cp/sob SARAN ALFRED MD Jan 10, 2019 11:01
[2019-01-10] MEDS ORDERED: IPRA3AMP29 HHN (11:06)
[2019-01-10] MEDS ORDERED: DOXY100T21 PO (11:06)
[2019-01-10] MEDS ORDERED: GUAI120S25 PO (11:06)
[2019-01-10] MEDS ORDERED: LEVO500T10 PO (11:06)
--- NOTE | 2019-01-10 11:35 | CONS ---
Consultation Date/Type/Reason Admit Date/Time Jan 03, 2019 at 16:08 Initial Consult Date 01/04/19 Type of Consult Pulmonary Patient is a pleasant 88-year-old gentleman who has been admitted because of cough for the last 2 weeks shortness of breath. Upon evaluation a CT scan of chest was done which showed bilateral pneumonia. Patient is feeling better since admission. Denies any fever, chills, wheezing, complains of cough without any significant sputum production. Also denies any nausea vomiting. By the time I saw the patient, he appeared comfortable. Past medical history; 1. History of BPH. 2. No history of any cardiopulmonary illnesses. 3. History of pink otitis in the past. 4. History of cholecystectomy. 5. History of laparotomy. Medications; reviewed. Allergies; none. Social history; patient never smoked, no stable alcohol or drug abuse. Family history; noncontributory. Occupational history; patient used to perform [employer] work. Review of systems; denies any headache, seizures, dysphagia, chest pain, angina, complains of cough and chest congestion. Complains of very scant sputum production. Denies any hemoptysis. Denies any fever or chills. Any abdominal pain, nausea vomiting. Complains of occasional difficulty with urination. Denies any GI symptoms. Any weight loss. Has good appetite. General exam; elderly male, awake alert, currently in no distress. Date/Time of Note DATE: 01/10/19 TIME: 11:33 24 HR Interval Summary Free Text/Dictation Patient's condition is stable. Denies any chest congestion, shortness of breath any coughing. Doing very well on room air. General exam; elderly male, awake alert, currently in no distress. H EENT exam; supple neck, no JVD. No lymphadenopathy. Midline trachea. No thyromegaly. Patient is edentulous. Chest exam; diminished but clear breath sounds. S1-S2 audible, no murmurs. Regular rhythm. Abdomen exam; soft, no organomegaly. Bowel sounds audible. Extremity exam; no peripheral edema clubbing. 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 Assessment and recommendations; 1. Patient admitted with severe bilateral community-acquired pneumonia with marked interval improvement. Continue with supportive care. Consider discharge as recommended yesterday. Exam/Review of Systems Exam Vitals Vital Signs Date Temp Pulse Resp B/P (MAP) Pulse Ox O2 O2 Flow FiO2 Time Delivery Rate 01/10/19 98.4 86 18 128/62 93 Room Air 09:31 (84) 01/10/19 21 09:10 01/09/19 2.0 08:00 Intake and Output 01/09/19 01/09/19 01/10/19 1515:00 23:00 07:00 IntakeIntake Total 120 ml 300 ml OutputOutput Total 150 ml BalanceBalance -30 ml 300 ml Results Result Diagram: 01/08/19 0652 01/10/19 0522 Results 24hrs Laboratory Tests Test 01/10/19 05:22 Sodium Level 137 Potassium Level 3.8 Chloride Level 101 Carbon Dioxide Level 27 Anion Gap 9 Blood Urea Nitrogen 13 Creatinine 0.48 L Est Glomerular Filtrat Rate mL/min Glucose Level 102 Calcium Level 8.9 Medications Medication Current Medications IV Flush (NS 3 ml) 3 ml PER PROTOCOL IV ; Start 01/03/19 at 18:00 Ondansetron HCl (Zofran Inj) 4 mg Q6H PRN IV NAUSEA/VOMITING; Start 01/03/19 at 18:00 Acetaminophen (Tylenol Tab) 650 mg Q6H PRN PO .PAIN 1-3 OR TEMP Last administered on 01/09/19at 18:56; Admin Dose 650 MG; Start 01/03/19 at 18:00 Docusate Sodium (Colace) 100 mg Q12H PRN PO .CONSTIPATION; Start 01/03/19 at 18:00 Enoxaparin Sodium (Lovenox) 40 mg DAILY SC Last administered on 01/10/19at 08:24; Admin Dose 40 MG; Start 01/03/19 at 18:00 Albuterol/ Ipratropium (Duoneb) 3 ml Q4H RESP THERAPY HHN Last administered on 01/10/19at 04:19; Admin Dose 3 ML; Start 01/03/19 at 21:00 Azithromycin 250 ml @ 250 mls/hr Q24H IV Last administered on 01/09/19at 17:39; Admin Dose 250 MLS/HR; Start 01/03/19 at 18:30 Cefepime HCl 50 ml @ 100 mls/hr Q12 IVPB Last administered on 01/10/19at 08:21; Admin Dose 100 MLS/HR; Start 01/04/19 at 11:00 Guaifenesin/ Dextromethorphan (Robitussin Dm Liquid Cup) 10 ml Q4H PRN PO COUGH Last administered on 01/09/19at 03:01; Admin Dose 10 ML; Start 01/04/19 at 15:30 Diltiazem HCl (Cardizem Iv) 10 mg Q6H PRN IV Tachycardia, HR > 130; Start 01/06/19 at 17:30 Lansoprazole (Prevacid) 30 mg DAILY@06 PO Last administered on 01/10/19at 05:43; Admin Dose 30 MG; Start 01/10/19 at 06:00 ANISH ATKINSON Jan 10, 2019 11:35
[2019-01-10 14:15] VITALS: BP 102/56; PULSE 98; RESP 18
== END 2019-01-10 14:50 | disposition home health service (06) | DRG 194 ==
LOC: E/R 15:36 → TEL 16:08 → PP2 01-07 15:23
PROVIDERS: ADMIT Internal Medicine; ATTEND Internal Medicine
DX: J18.9 Pneumonia, unspecified organism (principal); E22.2 Syndrome of inappropriate secretion of antidiuretic hormone; E44.0 Moderate protein-calorie malnutrition; Z68.1 Body mass index [BMI] 19.9 or less, adult; D64.9 Anemia, unspecified; J98.01 Acute bronchospasm; N40.0 Benign prostatic hyperplasia without lower urinary tract symptoms
CPT/HCPCS: 71045; 71250; 74230; 80048; 80053; 83540; 83690; 83735; 83935; 84100; 84295; 84300; 84450; 84460; 84484; 85025; 92526; 92610; 92611; 94640; 94664; 97110; 97116; 97161; 97530; J0456; J0692; J0696; J1650; J2916; J7040; J7050

== ENCOUNTER 2019-01-27 10:02 | Emergency (ER) | payer BC ==
[~2019-01-27] VITALS: Ht 157.5 cm; Wt 49.0 kg
[~2019-01-27 10:02] MED LIST changes: -CIPR500T4 PO; +DOXY100T21 PO; +GUAI120S25 PO; +IPRA3AMP29 HHN; +LEVO500T10 PO
[2019-01-27 10:03] VITALS: Ht 157.5 cm; Wt 49.0 kg
--- NOTE | 2019-01-27 12:58 | ERD ---
ER Documentation Chief Complaint Chief Complaint cough x 3 days "Especially at night" HPI 88-year-old male brought to the emergency department by his son, who is providing most of the history. Patient has a recent diagnosis of a pneumonia. Patient was treated with antibiotics as well as cough medicine. Patient was initially improving and finished his antibiotics. Patient was using a breathing treatment and cough medicine. Over the last 24 hours, patient has had a worsening cough. The cough was not associated with shortness of breath. There is no sputum production or hemoptysis. There is no chest pain. ROS All systems reviewed and are negative except as per history of present illness. Medications Home Meds Discontinued Scripts Doxycycline Monohydrate* (Doxycycline Monohydrate*) 100 Mg Tablet, 100 MG PO BID for 5 Days, TAB Prov:SARAN ALFRED MD 01/10/19 Levofloxacin* (Levofloxacin*) 500 Mg Tablet, 500 MG PO DAILY for 5 Days, TAB Prov:SARAN ALFRED MD 01/10/19 Ykfvtiemalm-M-Pgghawzajz Hb* (Guaifenesin* DM Syrup) 120 Ml Syrup, 10 ML PO Q4H PRN for COUGH for 14 Days Prov:SARAN ALFRED MD 01/10/19 Ipratropium-Albuterol (Ipratropium-Albuterol) 0.5-3 Mg/3 Ml Ampul.neb, 3 ML HHN Q4H RESP THERAPY for 10 Days Prov:SARAN ALFRED MD 01/10/19 Tamsulosin Hcl* (Flomax*) 0.4 Mg Cap.er.24h, 0.4 MG PO HS for 30 Days, CAP Prov:SARAN ALFRED MD 11/20/18 Allergies Allergies: Coded Allergies: No Known Allergy (Unverified , 01/27/19) PMhx/Soc History of Surgery: Yes (PANCREATIC SX, CHOLECYSTECTOMY, TURP) Anesthesia Reaction: No Hx Neurological Disorder: No Hx Respiratory Disorders: No (PNA) Hx Cardiac Disorders: No Hx Psychiatric Problems: No Hx Miscellaneous Medical Probl: Yes (hyponatremia, urinary tract infection, possible BPH, pancreatitis, cholecys) Hx Alcohol Use: No Hx Substance Use: No Hx Tobacco Use: No Smoking Status: Never smoker FmHx Supportive son at the bedside. Physical Exam Vitals Vital Signs Date Temp Pulse Resp B/P (MAP) Pulse Ox O2 O2 Flow FiO2 Time Delivery Rate 01/27/19 97.8 64 17 110/63 97 Room Air 11:00 (79) 01/27/19 97.7 80 19 150/64 96 10:03 (92) Physical Exam GENERAL: Frail, elderly male in no acute distress HEENT: Pupils equal, round, and reactive to light. EOMI. There is no scleral icterus. NECK: C-spine is soft and supple, there is no meningismus. There is no cervical lymphadenopathy. LUNGS: Clear to auscultation bilaterally. There are no rales, wheezes or rhonchi. HEART: Regular rate and rhythm, no murmurs, clicks, rubs or gallops. ABDOMEN: Soft, non-tender, non-distended. There are bowel sounds in all four quadrants. No rebound or guarding. EXTREMITIES: There is no peripheral cyanosis or edema. No focal swelling or erythema. NEURO: The patient moves all four extremities with 5/5 strength. Cranial nerves II - XII are intact. Normal gait. Alert and oriented SKIN: There is no apparent rash or petechiae. HEME/LYMPHATIC: There is no evidence of excessive bruising or lymphedema. PSYCHIATRIC: The patient does not appear anxious or depressed. Result Diagram: 01/27/19 1042 01/27/19 1042 Results 24 hrs Laboratory Tests Test 01/27/19 10:42 White Blood Count 5.5 10^3/ul Red Blood Count 4.27 10^6/ul Hemoglobin 13.0 g/dl Hematocrit 37.9 % Mean Corpuscular Volume 88.8 fl Mean Corpuscular Hemoglobin 30.4 pg Mean Corpuscular Hemoglobin Concent 34.3 g/dl Red Cell Distribution Width 14.2 % Platelet Count 284 10^3/UL Mean Platelet Volume 7.9 fl Immature Granulocytes % 0.400 % Neutrophils % 67.2 % Lymphocytes % 12.1 % Monocytes % 11.4 % Eosinophils % 8.5 % Basophils % 0.4 % Nucleated Red Blood Cells % 0.0 /100WBC Immature Granulocytes # 0.020 10^3/ul Neutrophils # 3.7 10^3/ul Lymphocytes # 0.7 10^3/ul Monocytes # 0.6 10^3/ul Eosinophils # 0.5 10^3/ul Basophils # 0.0 10^3/ul Nucleated Red Blood Cells # 0.0 10^3/ul Sodium Level 135 mmol/L Potassium Level 4.1 mmol/L Chloride Level 97 mmol/L Carbon Dioxide Level 25 mmol/L Anion Gap 13 Blood Urea Nitrogen 9 mg/dl Creatinine 0.59 mg/dl Est Glomerular Filtrat Rate mL/min mL/min Glucose Level 101 mg/dl POC Venous Lactate 1.6 mmol/L Calcium Level 9.5 mg/dl Total Bilirubin 0.8 mg/dl Direct Bilirubin 0.00 mg/dl Indirect Bilirubin 0.8 mg/dl Aspartate Amino Transf (AST/SGOT) 23 IU/L Alanine Aminotransferase (ALT/SGPT) 18 IU/L Alkaline Phosphatase 140 IU/L Troponin I < 0.012 ng/ml Total Protein 7.8 g/dl Albumin 4.0 g/dl Globulin 3.80 g/dl Albumin/Globulin Ratio 1.05 Procedures/MDM Patient was taken to a room, seen and evaluated. Comfort measures were initiated. Diagnostic tests were ordered and reviewed. RADIOLOGY: Reviewed with the radiologist REEVALUATION: 1255: Diagnostic tests were appreciated. Patient had no coughing or shortness of breath in the emergency department remained very stable. Diagnostic tests were discussed with the patient's son MEDICAL DECISION MAKIN-year-old male presents the emergency department with a recurrent cough in the setting of a treated pneumonia. At this time, patient shows no clinical evidence on clinical examination or imaging or labs of a recurrent pneumonia. Patient has no hypoxemia or evidence of respiratory distress. Patient has no indication of other decompensation of his pneumonia. Overall, he appears to be clinically comfortable and well-appearing and seems appropriate for discharge at this time. Departure Diagnosis: Primary Impression: Cough Condition: Stable Patient Instructions: Cough, Chronic, Uncertain Cause, (Adult) Additional Instructions: See your doctor for follow-up as discussed. Take a copy of your test results, if appropriate, to this follow-up visit. See your doctor or return here if your symptoms do not improve as expected. At any time, please return to the emergency department for any change or worsening in her symptoms. ROYCE ZAVALA Jan 27, 2019 12:58
[2019-01-27] MEDS ORDERED: ALBU2.5V3 NEB (12:59)
[2019-01-27] MEDS ORDERED: GUAI-173 PO (12:59)
[2019-01-27 13:05] VITALS: BP 117/51; PULSE 68; RESP 19
== END 2019-01-27 13:13 | disposition home or self-care (01) ==
LOC: E/R 10:02
DX: R05 Cough (principal)
CPT/HCPCS: 36415; 71045; 80053; 83605; 84484; 85025; 87040; Z7502; Z7610

== ENCOUNTER 2019-03-28 13:59 | Inpatient (IN) | payer BC ==
[~2019-03-28] VITALS: Ht 152.4 cm; Wt 44.8 kg
[~2019-03-28 13:59] MED LIST changes: +ALBU90AE INHALATION; +ASCO500C7 PO; +AZIT250T13 PO; -DOXY100T21 PO; +ERGO500013 PO; +GUAI-173 PO; -GUAI120S25 PO; -IPRA3AMP29 HHN; +LACT-135 PO; -LEVO500T10 PO; +LORA10TA3 PO; +MED4DP PO; +MEGE400O4 PO; +ONDA4TAB13 PO; -TAMS-14 PO; +TRAM50TA PO; +TRAM50TA2 PO
[2019-03-28] MEDS ORDERED: IPRATROPIUM (NEB) 0.5 MG/2.5 ML AMP INH STA (16:45)
[2019-03-28] MEDS ORDERED: ALBUTEROL 0.5% (NEB) 2.5 MG/0.5 ML AMP INH STA (16:45)
[2019-03-28] MEDS ORDERED: SOD CHLORIDE 0.9% 1,000 ML IV STA (16:45)
[2019-03-28] MEDS ORDERED: NACL 3% FOR INHALATION 15 ML NEBU NEB ONE (17:00)
[2019-03-28] MEDS ORDERED: METHYLPREDNISOLONE 125 MG INJ IV ONE (20:00)
[2019-03-28] MEDS ORDERED: MAGNESIUM HYDROXIDE 30ML CUP PO PRN (22:30)
[2019-03-28] MEDS ORDERED: ONDANSETRON 4 MG INJ IV PRN (22:30)
[2019-03-28] MEDS ORDERED: ACETAMINOPHEN 325 MG TAB PO PRN (22:30)
[2019-03-28] MEDS ORDERED: NACL 0.9% 3 ML SYG IV SCH (22:30)
[2019-03-28] MEDS ORDERED: BISACODYL (EC) 5 MG TAB PO PRN (22:30)
[2019-03-28] MEDS ORDERED: ACETAMINOPHEN 650 MG SUPP PR PRN (22:30)
[2019-03-28] MEDS ORDERED: DOCUSATE SODIUM 100 MG CAP PO PRN (22:30)
[2019-03-29 01:50] VITALS: BP 118/78; PULSE 74; RESP 20
[2019-03-29] MEDS: ALBUTEROL/IPRATROPIUM (NEB) 3 ML AMP HHN SCH ×4 (02:00→19:43)
[2019-03-29 02:16] VITALS: Ht 152.4 cm; Wt 44.8 kg
[2019-03-29] MEDS: SOD CHLORIDE 0.9% 1,000 ML IV SCH ×2 (02:41→22:19)
[2019-03-29] MEDS: PANTOPRAZOLE (EC) 40 MG TAB PO SCH (06:54)
[2019-03-29 07:38] VITALS: BP 124/70; PULSE 66; RESP 20
[2019-03-29] MEDS: METHYLPREDNISOLONE 40 MG INJ IV SCH ×2 (08:08→20:30)
[2019-03-29] MEDS: CEFTRIAXONE 1 GM/50 ML (PMX) 50 ML IVPB SCH (08:09)
[2019-03-29] MEDS: ENOXAPARIN 40 MG/0.4 ML SYG SC SCH (08:14)
[2019-03-29 11:14] VITALS: BP 124/64; PULSE 72; RESP 20
[2019-03-29] MEDS: LORATADINE 10 MG TAB PO SCH (12:16)
[2019-03-29] MEDS: MEGESTROL (40 MG/ML) 10ML CUP PO SCH ×2 (15:19→20:30)
[2019-03-29 15:55] VITALS: BP 134/71; PULSE 76; RESP 20
[2019-03-29 20:32] VITALS: BP 123/60; PULSE 71; RESP 18
[2019-03-30 00:30] VITALS: BP 139/65; PULSE 76; RESP 18
[2019-03-30] MEDS: ALBUTEROL/IPRATROPIUM (NEB) 3 ML AMP HHN SCH ×4 (01:43→20:05)
[2019-03-30 04:13] VITALS: BP 117/84; PULSE 95; RESP 16
[2019-03-30] MEDS: PANTOPRAZOLE (EC) 40 MG TAB PO SCH (05:47)
[2019-03-30 07:24] VITALS: BP 127/60; PULSE 86; RESP 20
[2019-03-30] MEDS: CEFTRIAXONE 1 GM/50 ML (PMX) 50 ML IVPB SCH (08:00)
[2019-03-30] MEDS: MEGESTROL (40 MG/ML) 10ML CUP PO SCH ×2 (08:00→21:15)
[2019-03-30] MEDS: LORATADINE 10 MG TAB PO SCH (08:00)
[2019-03-30] MEDS: METHYLPREDNISOLONE 40 MG INJ IV SCH ×2 (08:00→21:15)
[2019-03-30] MEDS: SOD CHLORIDE 0.9% 1,000 ML IV SCH (08:03)
[2019-03-30] MEDS: ENOXAPARIN 40 MG/0.4 ML SYG SC SCH (08:06)
[2019-03-30 11:53] VITALS: BP 126/60; PULSE 96; RESP 20
[2019-03-30 15:09] VITALS: BP 119/64; PULSE 92; RESP 20
[2019-03-30] MEDS: AZITHROMYCIN 500 MG in SOD CHLORIDE 0.9% 250 ML IVPB SCH (15:16)
[2019-03-30] MEDS ORDERED: ERGOCALCIFEROL 50,000 UNIT CAP PO SCH (20:00)
[2019-03-30] MEDS ORDERED: GUAIFENESIN 20 MG/ML 5ML CUP PO PRN (20:00)
[2019-03-30 20:37] VITALS: BP 139/65; PULSE 85; RESP 20
[2019-03-31] MEDS: ALBUTEROL/IPRATROPIUM (NEB) 3 ML AMP HHN SCH ×4 (01:06→19:59)
[2019-03-31 02:30] VITALS: BP 122/63; PULSE 93; RESP 18
[2019-03-31] MEDS: PANTOPRAZOLE (EC) 40 MG TAB PO SCH (06:04)
[2019-03-31 07:48] VITALS: BP 123/65; PULSE 79; RESP 22
[2019-03-31] MEDS: MEGESTROL (40 MG/ML) 10ML CUP PO SCH ×2 (09:11→20:59)
[2019-03-31] MEDS: ASCORBIC ACID 500 MG TAB PO SCH (09:11)
[2019-03-31] MEDS: LORATADINE 10 MG TAB PO SCH (09:11)
[2019-03-31] MEDS: METHYLPREDNISOLONE 40 MG INJ IV SCH ×2 (09:11→20:59)
[2019-03-31] MEDS: CEFTRIAXONE 1 GM/50 ML (PMX) 50 ML IVPB SCH (09:11)
[2019-03-31] MEDS: ENOXAPARIN 40 MG/0.4 ML SYG SC SCH (09:22)
[2019-03-31 14:00] VITALS: BP 125/74; PULSE 81; RESP 20
[2019-03-31] MEDS: AZITHROMYCIN 500 MG in SOD CHLORIDE 0.9% 250 ML IVPB SCH (15:26)
[2019-03-31 20:00] VITALS: BP 131/64; PULSE 85; RESP 16
[2019-04-01] MEDS: ALBUTEROL/IPRATROPIUM (NEB) 3 ML AMP HHN SCH ×3 (01:36→13:50)
[2019-04-01 02:00] VITALS: BP 128/62; PULSE 85; RESP 16
[2019-04-01] MEDS: PANTOPRAZOLE (EC) 40 MG TAB PO SCH (06:15)
[2019-04-01 07:53] VITALS: BP 125/63; PULSE 82; RESP 16
[2019-04-01] MEDS: METHYLPREDNISOLONE 40 MG INJ IV SCH (09:56)
[2019-04-01] MEDS: LORATADINE 10 MG TAB PO SCH (09:56)
[2019-04-01] MEDS: ASCORBIC ACID 500 MG TAB PO SCH (09:56)
[2019-04-01] MEDS: CEFTRIAXONE 1 GM/50 ML (PMX) 50 ML IVPB SCH (09:56)
[2019-04-01] MEDS: MEGESTROL (40 MG/ML) 10ML CUP PO SCH (09:57)
[2019-04-01] MEDS: ENOXAPARIN 40 MG/0.4 ML SYG SC SCH (09:58)
[2019-04-01 14:28] VITALS: BP 128/61; RESP 16
[2019-04-01] MEDS ORDERED: AZITHROMYCIN 500MG/NS (PMX) 250 ML IV SCH (15:00)
== END 2019-04-01 17:30 | disposition home or self-care (01) | DRG 177 ==
LOC: E/R 13:59 → 6WM 20:47 → CANRESERV 03-29 00:50 → 2NE 03-30 19:18
PROVIDERS: ADMIT Internal Medicine Nephrology; ATTEND Internal Medicine Nephrology
PROC: 4A033R1 Measurement of Arterial Saturation, Peripheral, Percutaneous Approach (ICD-10-PCS; principal; 2019-03-31)
DX: J69.0 Pneumonitis due to inhalation of food and vomit (principal); E43 Unspecified severe protein-calorie malnutrition; E87.1 Hypo-osmolality and hyponatremia; Z68.1 Body mass index [BMI] 19.9 or less, adult; R78.81 Bacteremia; J84.9 Interstitial pulmonary disease, unspecified; R62.7 Adult failure to thrive; D64.9 Anemia, unspecified; D70.9 Neutropenia, unspecified; Z87.01 Personal history of pneumonia (recurrent)
CPT/HCPCS: 36415; 36600; 71045; 80048; 80053; 81001; 82652; 82803; 83036; 83540; 83690; 83880; 84145; 84295; 84436; 84479; 84484; 85025; 87086; 87400; 93005; 93306; 94640; 94644; 96374; 97116; 97162; 97530; J0456; J0696; J1650; J2920; J2930; J7030; J7050